=== PATIENT | male | born 1965 | race Caucasian/White ===

== ENCOUNTER 2021-03-16 12:48 | Inpatient (IN) | payer BC, SELFPAY ==
[2021-03-16] VITALS (9 sets, daily range): BP systolic 103–134; BP diastolic 52–95; PULSE 79–97; RESP 14–18; TEMP 36.4–37.8; O2SAT 92–98; BMI 32.3
--- NOTE | ~2021-03-16 | XR_ITS ---
EXAMINATION: XR elbow RT min 3V DATE: 03/16/2021 13:34 INDICATION: Right elbow pain and erythema TECHNIQUE: Anteroposterior, two oblique and lateral views of the right elbow were obtained. COMPARISON: None. FINDINGS: Alignment is normal. No fracture. Joint spaces are normal. No cortical erosions or periosteal reactio n. No right elbow joint effusion. Soft tissue swelling dorsal to the olecranon and proximal forearm. IMPRESSION: 1. Soft tissue swelling most prominent dorsal to the olecranon which could be seen with olecranon bur sitis. 2. No osseous abnormality or right elbow joint effusion. Reviewed, dictated and finalized at location A. IMPRESSION: 1. Soft tissue swelling most prominent dorsal to the olecranon which could be s een with olecranon bursitis. 2. No osseous abnormality or right elbow joint effusion.
--- NOTE | 2021-03-16 13:36 | ED.GENADULT ---
HPI - General Adult General Chief complaint: Skin/Abscess/Foreign Body Stated complaint: right elbow wound, sent from express care Time Seen by Provider: 03/16/21 13:08 Source: patient History of Present Illness HPI narrative: Patient is a 56 y/o male complaining of right elbow pain starting yesterday. He describes his pain as sharp and rates it as 10/10. Movement, cough makes his pain worse. There is no pain radiation. He had a scab over right elbow for 3 weeks. He was seen at urgent care earlier today. He was given Toradol and Rocephin. His BP reportedly dropped to 80s systolic and he was sent here for further evaluation. Related Data Home Medications Medication Instructions Recorded Confirmed lisinopril 10 mg PO DAILY 03/16/21 03/16/21 Allergies Allergy/AdvReac Type Severity Reaction Status Date / Time hydromorphone [From Dilaudid] Allergy Rash Verified 03/16/21 13:33 Review of Systems Constitutional: Constitutional: Denies chills, Denies fever(s), Denies headache(s) and Denies weakness Eyes: Eyes: Denies blurry vision ENT: Denies headache(s) and Denies neck pain Cardiovascular: Cardiovascular: Denies chest pain and Denies dyspnea Respiratory: Respiratory: Denies cough and Denies dyspnea Gastrointestinal: Gastrointestinal: Denies abdominal pain, Denies diarrhea, Denies nausea and Denies vomiting Genitourinary: Genitourinary: Denies hematuria and Denies dysuria Musculoskeletal: Musculoskeletal: Denies back pain, Denies neck pain and Reports other (right elbow pain and swelling) Integumentary/Breasts: Skin/Breast: Reports erythema (right elbow) Neurologic: Denies headache(s) and Denies weakness Exam Const: General: no acute distress and well developed Orientation/consciousness: oriented to person, oriented to place, oriented to time and patient oriented x3 HENMT: Head: normocephalic Ears: external ears normal General nose exam: Normal external nose present Eyes: General: appearance normal, both eyes and all related structures Conjunctivae: conjunctivae normal Neck: Neck: normal visual inspection and full ROM Chest: Chest palpation & inspection: normal inspection of the chest and no tenderness Resp: Effort & Inspection: normal respiratory effort Auscultation: clear to auscultation bilaterally Cardio: Rate: regular rate Rhythm: regular rhythm GI: GI Palp: No abdominal tenderness and Yes Soft to palpation Skin: General skin exam: normal color, turgor normal and erythema (right elbow) Neuro: General: oriented to person, oriented to place, oriented to time and patient oriented x3 Cognition (Neuro): normal cognition Extrem: General: normal to inspection, full ROM and no pedal edema Right upper extremity: elbow/forearm tenderness and swelling Psych: Appearance: grossly normal Mental Status: mental status grossly normal Affect: normal affect Course Consultations Consultation #1: Discussed with Dr. Snyder, who recommends starting patient on Ancef and Vanc. He will consult. Date: 03/16/21 Time: 16:49 Consultation #2: Discussed with YULI Casillas, who agrees to admit. Date: 03/16/21 Time: 17:08 Vital Signs Vital signs: Vital Signs Temperature 36.4 C 03/16/21 12:51 Pulse Rate 92 03/16/21 12:51 Respiratory Rate 18 03/16/21 12:51 Blood Pressure 107/52 L 03/16/21 12:51 Pulse Oximetry 94 03/16/21 12:51 Temperature 36.4 C 03/16/21 12:51 Pulse Rate 85 03/16/21 17:48 Respiratory Rate 15 03/16/21 17:48 Blood Pressure 133/95 H 03/16/21 17:48 Pulse Oximetry 98 03/16/21 17:48 Procedures Joint Aspiration/Injection Joint Asp./Inject. 1: Joint Aspiration Date: 03/16/21 Joint Aspiration Time: 15:04 Time Out Performed: Yes Side of body: right Joint Aspirated: elbow Ultrasound Guidance: No Skin Prep: Povidone-Iodine1% Local Anesthetic: lidocaine 1% Amount of anesthesia used (mL): 2 Needle Size Used: 18G
[2021-03-16] MEDS: SODIUM CHLORIDE 0.9% IV 1,000 ML 999 ML IV CONT (13:45)
[2021-03-16 14:00] LABS: Basophils Absolute Auto 0.1 K/mm3 (0.0-0.1); Basophils Percent Auto 0.3 % (0.2-1.2); Eosinophils Percent Auto 0.3 % (0-4.4); Hematocrit 44.1 % (42.0-52.0); Hemoglobin 15.1 g/dL (14.0-18.0); Immature Granulocyte Absolute 0.06 K/mm3 (0.00-0.031); Immature Granulocyte Percent A 0.4 % (0-0.5); Lymphocytes Absolute Auto 1.42 K/mm3 (0.9-3.2); Lymphocytes Percent Auto 9.5 % (18.3-44.2); Mean Corpuscular HGB Conc 34.2 g/dl (32-36); Mean Corpuscular Hemoglobin 30.3 pg (26-34); Mean Corpuscular Volume 88.6 fl (80-100); Mean Platelet Volume 10.2 fl (7.4-10.4); Monocytes Absolute Auto 0.8 K/mm3 (0.1-0.6); Monocytes Percent Auto 5.5 % (2.6-8.5); Neutrophils Absolute Auto 12.6 K/mm3 (1.3-6.7); Platelet Count Result 201 k/mm3 (150-375); Red Blood Count 4.98 M/mm3 (4.6-6.20); Red Cell Distribution Width 13.7 % (11.5-14.5)
[2021-03-16 14:14] LABS: Potassium 3.4 mmol/L (3.4-5.0)
[2021-03-16 14:16] LABS: Lactic Acid Reflex 1.9 mmol/L (0.7-2.1)
[2021-03-16 14:23] LABS: Anion Gap 7 mmol/L (8-16); Blood Urea Nitrogen 19 mg/dL (9-20); CRP 6.3 mg/dL (<1.0); Calcium 8.9 mg/dL (8.4-10.2); Carbon Dioxide 31 mmol/L (22-30); Chloride 98 mmol/L (98-107); Estimated CRCL calculation 88 ml/min; Estimated Glomerular Filt Rate > 60; Glucose 138 mg/dL (75-110); Sodium 136 mmol/L (137-145)
[2021-03-16 16:06] LABS: Erythrocyte Sedimentation Rate 3 mm/hr (0-20)
[2021-03-16 17:10] LABS: Source Synovial Fluid Synovial fluid
[2021-03-16 17:11] LABS: Appearance Synovial Fluid Turbid (Clear); Color Synovial Fluid Yellow (Colorless)
[2021-03-16 17:13] LABS: Lymphocytes Synovial Fluid 16 %; Monocytes Synovial Fluid 3 %; Neutrophils Synovial Fluid 81 % (0-25)
--- NOTE | 2021-03-16 17:21 | PC.NURSE ---
dinner tray ordered for pt at this time
[2021-03-16] MEDS: ceFAZolin 2 GM/D5W 50 ML 2 GM/50 ML BAG IVPB (17:23)
--- NOTE | 2021-03-16 18:26 | PC.NURSE ---
Report given to Namrata LAI on . This RN informed that the bed is not clean, will be notified when it is ready.
--- NOTE | 2021-03-16 19:30 | ADMGEN ---
This patient, Alan Rhoades, was admitted to Medical Room 349-01. Patient/family oriented to hospital policies and general routines including ID bracelet, bed and alarms, visiting hours, pain management, procedures, bathroom and other care routines, personal items, smoking policy, room service/diet, and visiting hours. Information on how to activate the Rapid Response Team has been discussed. Patient/Family are encouraged to report perceived risks to care and to ask questions if they do not understand what they are told or what they should do.
--- NOTE | 2021-03-16 21:30 | PCRCNOTE ---
PT wears CPAP at home asked if he would like one while here he said no.
[2021-03-16] MEDS: ACETAMINOPHEN 325 MG TABLET 650 MG PO (21:55)
[2021-03-16] MEDS: traMADol HCL (*CRX) 50 MG TABLET PO (21:57)
--- NOTE | 2021-03-16 22:15 | PM.IMHP ---
H&P: HPI History of Present Illness Date/Time: 03/16/21 22:00 Chief Complaint: Right elbow pain and swelling. Narrative: This is a 56-year-old male with hypertension, sleep apnea, GERD, and depression who presented to the emergency department earlier today from a local [facility] for further evaluation of right elbow pain and swelling. He noticed a small scab on the right elbow several weeks ago and is not certain as to how it occurred. More recently he developed swelling and pain in the elbow and last night it became much worse. He has also noticed that the area is warm, red, and very tender to palpation. It is made worse with movement of the joint. The joint was aspirated in the emergency department and yielded to mL of purulence fluid which was sent for analysis and culture. He has not had a fever however his temperature was 100.1? on arrival to the floor. His appetite has been okay knee denies nausea and vomiting. He denies known trauma to the elbow. No other joints are painful or swollen. No history of multidrug resistant organisms. Review of Systems Review of Systems: Narrative: Twelve systems were reviewed with pertinent positives and negatives as per HPI. He denies: Flu symptoms. No chest pain or shortness of breath. No cough. No nausea, vomiting, or diarrhea. Except as documented, all other systems were reviewed and are negative. [facility] Past Medical History Medical History (Updated 03/16/21 @ 22:11 by Sonja Fuentes PA-C) Depression History of deep venous thrombosis Right lower extremity. History of kidney stones Hypertension Obstructive sleep apnea Tobacco dependence Surgical History Surgical History (Updated 03/16/21 @ 23:41 by Sonja Fuentes PA-C) History of arthroscopy of both knees History of tonsillectomy Family History Family History Mother Cerebrovascular accident Chronic obstructive pulmonary disease Social History Social History Social History: Surrogate decision maker: Dominick Ferrara, spouse. Code status: Full code. Smoking packs per day: 1 Smoking cigarettes per day: 20.0 Years smoked: 30 Smoking pack-years: 30.00 Smoking status: Current every day smoker Alcohol intake: current Drinks per week: 0 Substance use: never Additional living arrangements comments: The patient lives with his spouse in [place]. Additional occupation/education comments: Works for the [employer]. Gender identity (if verbalized by the patient): Male Spiritual care concerns: No Meds Home Medications and Allergies Home Medications Medication Instructions Recorded Confirmed Type emtricitabine-tenofovir alafen 1 tablet PO DAILY 03/16/21 03/16/21 History [Descovy] gabapentin 300 mg PO TID 03/16/21 03/16/21 History lisinopril-hydrochlorothiazide 2 tablet PO DAILY 03/16/21 03/16/21 History omeprazole 20 mg PO DAILY 03/16/21 03/16/21 History sertraline 100 mg PO DAILY 03/16/21 03/16/21 History Allergies Allergy/AdvReac Type Severity Reaction Status Date / Time hydromorphone [From Dilaudid] Allergy Rash Verified 03/16/21 19:33 Vital Signs Vital Signs - 24 hr 03/16/21 12:51 03/16/21 13:52 03/16/21 15:11 Temperature 97.6 F Pulse Rate 92 91 90 Respiratory Rate 18 17 18 Blood Pressure 107/52 L 104/63 103/70 Pulse Oximetry 94 94 96 03/16/21 16:26 03/16/21 17:48 03/16/21 19:19 Temperature Pulse Rate 84 85 82 Respiratory Rate 15 15 14 Blood Pressure 124/81 133/95 H 134/77 Pulse Oximetry 97 98 98 03/16/21 19:45 03/16/21 21:29 Temperature 100.1 F H Pulse Rate 97 79 Respiratory Rate 18 Blood Pressure 117/79 Pulse Oximetry 95 92 Exam Narrative: Exam Narrative: General: Well-developed male lying on his left side in bed in no distress. Weight: 102.076 kilograms. BMI: 32.3. HEENT: PERRL,
[2021-03-16] MEDS: GABAPENTIN 300 MG CAPSULE PO (23:23)
[2021-03-17] MEDS: HYDROcodone/acetaminophen (*CRX) 5-325 MG TABLET 1 TAB PO ×3 (05:31→21:07)
[2021-03-17] MEDS: GABAPENTIN 300 MG CAPSULE PO ×3 (05:32→21:07)
[2021-03-17 05:34] VITALS: BP 143/80; PULSE 96; RESP 14; TEMP 36.9; O2SAT 94
[2021-03-17 06:15] LABS: Hematocrit 40.4 % (42.0-52.0); Mean Corpuscular HGB Conc 34.7 g/dl (32-36); Mean Corpuscular Hemoglobin 30.7 pg (26-34); Mean Corpuscular Volume 88.6 fl (80-100); Mean Platelet Volume 10.2 fl (7.4-10.4); Platelet Count Result 180 k/mm3 (150-375); Red Blood Count 4.56 M/mm3 (4.6-6.20); Red Cell Distribution Width 13.9 % (11.5-14.5); White Blood Count 13.6 K/mm3 (4.5-10.0)
[2021-03-17] MEDS: NICOTINE (*PBKC) 21 MG PATCH 1 PATCH TRANSDERM (06:35)
[2021-03-17 06:51] LABS: Alanine Aminotransferase 21 U/L (4-50); Albumin Level 3.6 g/dL (3.5-5.1); Alkaline Phosphatase 50 U/L (38-126); Anion Gap 4 mmol/L (8-16); Aspartate Amino Transferase 26 U/L (17-59); Bilirubin,Total 1.1 mg/dL (0.2-1.3); Blood Urea Nitrogen 20 mg/dL (9-20); CRP 16.5 mg/dL (<1.0); Calcium 8.5 mg/dL (8.4-10.2); Carbon Dioxide 30 mmol/L (22-30); Chloride 103 mmol/L (98-107); Estimated CRCL calculation 89 ml/min; Estimated Glomerular Filt Rate > 60; Glucose 116 mg/dL (75-110); Magnesium 1.8 mg/dL (1.6-2.3); Potassium 3.6 mmol/L (3.4-5.0); Sodium 137 mmol/L (137-145)
[2021-03-17] MEDS: hydroCHLOROthiazide 25 MG TABLET PO (09:03)
[2021-03-17] MEDS: PANTOPRAZOLE SOD SESQUIHYDRATE 20 MG TAB PO (09:03)
[2021-03-17] MEDS: lisinopriL 20 MG TABLET 40 MG PO (09:04)
[2021-03-17] MEDS: SERTRALINE HCL 50 MG TABLET 100 MG PO (09:04)
--- NOTE | 2021-03-17 10:31 | PHAR ---
PT'S HOME MED: (Emtricitabine-Tenofovir Alafen [Descovy] 200-25 mg tablet) VERIFIED BY PHARMACY
--- NOTE | 2021-03-17 11:30 | PM.CNOR ---
Assessment and Plan Additional Plan Patient has a right olecranon bursal infection. Again fluid was removed in the ER and this been sent off for cultures. Patient is placed on Ancef and vancomycin. Dr. Sanchez the infectious disease doctor has been consulted as well. Patient has no known drug allergies. Advised patient at this point with that we will keep him here until we have results from the cultures. At that time recommendations from Dr. Sanchez as far as length of antibiotics as well as the overall course antibiotics will be determined. Did advise patient that he continue with range of motion of the wrist and fingers. He may do gentle range of motion of the elbow if tolerable. We will continue to follow patient while he is here. At this point, given his physical exam it is unlikely that he will need surgical debridement of the elbow. However this may change in the future depending on his course of recovery <YULI Ruby - Last Filed: 03/17/21 11:36> History of Present Illness HPI Consult date: 03/17/21 <YULI Ruby - Last Filed: 03/17/21 11:36> 03/19/21 <Godfrey Snyder MD - Last Filed: 03/19/21 16:45> Chief complaint: Infection olecranon bursitis <YULI Ruby - Last Filed: 03/17/21 11:36> Narrative: 56-year-old male who is being seen for a right olecranon bursal infection. He woke up Wednesday night with severe pain and swelling in the right olecranon bursal area. He did not have any injuries or trauma. He noted he did have a scab over the elbow that has been there for about 3 weeks. He is having rather severe pain and went to an urgent care on Wednesday morning and was told that this would need to be treated at the emergency room. He was sent [facility] and was admitted. They did draw fluid off the elbow well as in the ER this is been sent off for cultures. He was placed on Ancef and vancomycin at this point. <YULI Ruby - Last Filed: 03/17/21 11:36> [facility] Past Medical History Medical History: Medical History (Updated 03/17/21 @ 15:01 by Tyesha Arciniega PA-C) Depression History of deep venous thrombosis Right lower extremity. History of kidney stones Hypertension Obstructive sleep apnea Tobacco dependence <YULI Ruby - Last Filed: 03/17/21 11:36> Surgical History Surgical History: Surgical History (Updated 03/16/21 @ 23:41 by Sonja Fuentes PA-C) History of arthroscopy of both knees History of tonsillectomy <YULI Ruby Last Filed: 03/17/21 11:36> Family History Family History: Family History Mother Cerebrovascular accident Chronic obstructive pulmonary disease <YULI Ruby Last Filed: 03/17/21 11:36> Social History Social History: Social History Social History: Surrogate decision maker: Dominick Ferrara, spouse. Code status: Full code. Smoking packs per day: 1 Smoking cigarettes per day: 20.0 Years smoked: 30 Smoking pack-years: 30.00 Smoking status: Current every day smoker Alcohol intake: current Drinks per week: 0 Substance use: never Additional living arrangements comments: The patient lives with his spouse in [place]. Additional occupation/education comments: Works for the [employer]. Gender identity (if verbalized by the patient): Male Spiritual care concerns: No <YULI Ruby - Last Filed: 03/17/21 11:36> Meds Home Medications and Allergies Home medications: Home Medications Medication Instructions Recorded Confirmed Type emtricitabine-tenofovir alafen 1 tablet PO DAILY 03/16/21 03/16/21 History [Descovy] gabapentin 300 mg PO TID 03/16/21 03/16/21 History lisinopril-hydrochlorothiazide 2 tablet PO DAILY 03/16/21 03/16/21 History omeprazole 20 mg PO DAILY 03/16/21 03/16/21 History sert
[2021-03-17 12:00] VITALS: BP 144/81; PULSE 92; RESP 16; TEMP 37.9; O2SAT 98
--- NOTE | 2021-03-17 12:25 | WPDINFPN2 ---
Progress Note: A&P Assessment and Plan (1) Septic olecranon bursitis of right elbow: Code(s): M71.121 - Other infective bursitis, right elbow Status: Acute Assessment and Plan: R elbow infectious bursitis REC Ancef (unless cultures dictate otherwise) until exam improved, then cephalexin through 03/29. Call if Qs Subjective Date/time seen: 03/17/21 12:25 Objective Data Vital Signs Vital Signs: Vital Signs - 24 hr 03/16/21 12:51 03/16/21 13:52 03/16/21 15:11 Temperature 36.4 C Pulse Rate 92 91 90 Respiratory Rate 18 17 18 Blood Pressure 107/52 L 104/63 103/70 Pulse Oximetry 94 94 96 03/16/21 16:26 03/16/21 17:48 03/16/21 19:19 Temperature Pulse Rate 84 85 82 Respiratory Rate 15 15 14 Blood Pressure 124/81 133/95 H 134/77 Pulse Oximetry 97 98 98 03/16/21 19:45 03/16/21 21:29 03/16/21 23:28 Temperature 37.8 C H 37.7 C H Pulse Rate 97 79 Respiratory Rate 18 Blood Pressure 117/79 Pulse Oximetry 95 92 03/17/21 05:34 Temperature 36.9 C Pulse Rate 96 Respiratory Rate 14 Blood Pressure 143/80 H Pulse Oximetry 94 Intake/Output Intake/Output: Intake & Output 03/14/21 03/15/21 03/16/21 03/17/21 23:59 23:59 23:59 23:59 Intake Total 1350 1240 Balance 1350 1240 Meds/Results Medications: Active Medications Generic Name Dose Route Start Last Admin Trade Name Freq PRN Reason Stop Dose Admin Acetaminophen 650 mg 03/16/21 20:56 03/16/21 21:55 Acetaminophen 325 Mg Tablet PO 650 mg Q6H PRN Administration Mild Pain (1-3) or Fever Hydrocodone Bitart/Acetaminophen 1 tab 03/16/21 23:46 03/17/21 05:31 Hydrocodone/Acetaminophen (*Crx) 5-325 Mg Tablet PO 1 tab Q6H PRN Administration Pain Rated 4-6 Gabapentin 300 mg 03/16/21 22:25 03/17/21 05:32 Gabapentin 300 Mg Capsule PO 300 mg Q8HR RAINE Administration Hydrochlorothiazide 25 mg 03/17/21 09:00 03/17/21 09:03 Hydrochlorothiazide 25 Mg Tablet PO 25 mg QAM RAINE Administration Cefazolin Sodium 1 gm in 50 mls @ 100 mls/hr 03/16/21 23:00 03/17/21 06:01 Ancef 1 Gm/D5w 50 Ml Pm IVPB Infused Q8HR RAINE Infusion Vancomycin HCl 1,500 mg in 500 mls @ 333.333 mls/hr 03/17/21 10:00 03/17/21 09:04 Vancomycin 1,500 Mg/D5w 500 Ml IVPB 333.33 mls/hr Q12H RAINE Administration Lisinopril 40 mg 03/17/21 09:00 03/17/21 09:04 Lisinopril 20 Mg Tablet PO 40 mg QAM RAINE Administration Nicotine 1 patch 03/17/21 06:10 03/17/21 06:35 Nicotine (*Pbkc) 21 Mg Patch TRANSDERM 1 patch QAM RAINE Administration Pantoprazole Sodium 20 mg 03/17/21 09:00 03/17/21 09:03 Pantoprazole Sod Sesquihydrate 20 Mg Tab PO 20 mg QAM RAINE Administration Sertraline HCl 100 mg 03/17/21 09:00 03/17/21 09:04 Sertraline Hcl 50 Mg Tablet PO 100 mg DAILY RANIE Administration Radiology Results: ITS Impressions Elbow X-Ray 03/16/21 13:37 IMPRESSION: 1. Soft tissue swelling most prominent dorsal to the olecranon which could be seen with olecranon bursitis. 2. No osseous abnormality or right elbow joint effusion. Labs Labs: Laboratory Results - last 24 hr 03/16/21 03/16/21 03/16/21 13:42 13:42 13:42 WBC 15.0 H RBC 4.98 Hgb 15.1 Hct 44.1 MCV 88.6 MCH 30.3 MCHC 34.2 RDW 13.7 Plt Count 201 MPV 10.2 Immature Gran % (Auto) 0.4 Neut % (Auto) 84.0 H Lymph % (Auto) 9.5 L [place] % (Auto) 5.5 Eos % (Auto) 0.3 Baso % (Auto) 0.3 Lymph # (Auto) 1.42 [place] # (Auto) 0.8 H Eos # (Auto) 0.0 Baso # (Auto) 0.1 Abs Immat Gran (auto) 0.06 H Absolute Neuts (auto) 12.6 H Absolute Nucleated RBC 0.0 Nucleated RBC % 0.0 ESR 3 Sodium 136 L Potassium 3.4 Chloride 98 Carbon Dioxide 31 H Anion Gap 7 L BUN 19 Creatinine 1.00 Estim Creat Clear Calc 88 Estimated GFR > 60 Glucose 138 H Lactic Acid 1.9 Calcium 8.9 Magnesium Total Bilirubin AST
[2021-03-17 14:22] VITALS: TEMP 37.2
--- NOTE | 2021-03-17 14:55 | PM.IMPN ---
Progress Note: A&P Assessment and Plan (1) Sepsis: Code(s): A41.9 - Sepsis, unspecified organism Status: Acute Assessment and Plan: Patient meets sepsis criteria with leukocytosis, fevers in the setting of septic olecranon bursitis. Continue IV antibiotics. Pending culture results. (2) Septic olecranon bursitis of right elbow: Code(s): M71.121 - Other infective bursitis, right elbow Status: Acute Assessment and Plan: Suspected septic olecranon bursitis of the right elbow with surrounding cellulitis. Empiric vancomycin and cephazolin started in the ER. Joint was aspirated in the ED and cell count, Gram stain, and cultures are pending. Dr. cadena infectious Disease evaluated the patient and recommended IV Cefazolin 1 gm Q8hrs unless cultures indicate otherwise and until exam improves. Then, once ready for discharge would recommend PO Cephalexin through 03/[address] Snyder (orthopedics) has been consulted and his input is appreciated. Continue monitoring. Pain control, antipyretics and Antiemetics PRN. (3) Hypertension: Code(s): I10 - Essential (primary) hypertension Status: Acute Assessment and Plan: Blood pressures 143/80, stable. Continue antihypertensives and monitor daily. (4) Obstructive sleep apnea: Code(s): G47.33 - Obstructive sleep apnea (adult) (pediatric) Status: Acute Assessment and Plan: CPAP will be provided for the patient to use while hospitalized. (5) Depression: Code(s): F32.9 - Major depressive disorder, single episode, unspecified Status: Acute Assessment and Plan: No acute issues. Continue sertraline. (6) Tobacco dependence: Code(s): F17.200 - Nicotine dependence, unspecified, uncomplicated Status: Acute Assessment and Plan: Smoking cessation is encouraged for 3 minutes. He has Nicotine patch in place which is helping. Would like to be discharge with nicotine patch as well. Time Spent With Patient Time with patient: 25 - 35 minutes Subjective Date/time seen: 03/17/21 14:55 Interval history: Date of service 03/17/2021: Patient is still having intermittent fevers and chills, body aches. He still has increased pain to his right elbow, redness has improved. Denies any discharge from his elbow. He denies any chest pain, shortness of breath, nausea, vomiting, abdominal pain, leg swelling, calf pain, any other joint issues, lightheadedness, dizziness or any other symptoms at this time. Review of Systems Review of Systems: All systems reviewed & are unremarkable except as noted in HPI and below Exam Narrative: Exam Narrative: General: 56-year-old man standing up on the side of the bed talking to his friend. Appears comfortable. In no acute distress. Skin: No jaundice or cyanosis. Good skin turgor. Neck: Full range of motion. Supple. Respiratory: Lungs are clear to auscultation bilaterally. No bony chest wall tenderness. Cardiovascular: The heart has a regular rate and rhythm without murmur. No carotid bruits. Right upper extremity: Erythema, edema, warmth noted to right elbow with 8 cm in diameter. Scab noted to right elbow without any signs of acute drainage. Some edema noted to the right forearm and hand. Neurovascularly distally intact. Lower extremities: No lower extremity edema. Distal pulses are easily palpated. No calf tenderness to palpation. Gastrointestinal: The abdomen is soft, nontender and nondistended with active bowel sounds. Psychiatric: Lucid and oriented. Memory intact. Neurologic: No focal deficits. Speech is clear. No facial drooping. Objective Data Vital Signs Vit
[2021-03-17 16:00] VITALS: BP 130/78; PULSE 96; RESP 16; TEMP 37.1; O2SAT 96
[2021-03-17] MEDS: ERYTHROMYCIN OPHTH OINTMENT 1 GM TUBE 1 APPLIC EACH EYE (17:06)
--- NOTE | 2021-03-17 17:19 | CONS_ITS ---
DATE OF CONSULTATION: 03/17/2021 REASON FOR CONSULTATION: Infectious bursitis, right elbow. HISTORY OF PRESENT ILLNESS: 56-year-old male with hypertension, no other chronic medical illnesses. He has had no previous surgery, major trauma nor known vascular compromise to the right upper extremity. He developed a scab over the olecranon of the right elbow about 3 weeks prior to admission. One day before admission, he developed new onset of swelling, redness, pain, diminished range of motion of the right elbow. He went to urgent care, then sent to the emergency room, then admitted. He has been given vancomycin and Ancef. Consultation requested. No fever, chills, or sweats prior to admission. No recent antibiotics for any other purpose. No prior such episodes. No arthralgias elsewhere. He has been on no immunosuppressants in the last month for any purpose. ALLERGIES: HYDROMORPHONE CAUSED RASH. HABITS: One pack per day smoker. No illicit drugs. Minimal alcohol. PRESENT MEDICATIONS: List reviewed. No immunosuppressants. He is on Descovy at home. FAMILY HISTORY: Not pertinent to his present illness. SOCIAL HISTORY: He has a same sex marriage. Works for the [employer]. Lives locally. PAST MEDICAL HISTORY: Tonsillectomy, arthroscopic knee surgery, GENE, hypertension, nephrolithiasis, previous DVT, depression. REVIEW OF SYSTEMS: Skin, musculoskeletal, constitutional, GI, respiratory otherwise negative. PHYSICAL EXAMINATION: GENERAL: Middle-aged male who appears actual age. No acute distress. VITAL SIGNS: T-max 37.8 last evening, 143/80, 96, 14, 94% room air. SKIN: Warm and dry. No erythroderma. No rashes. EENT: The conjunctivae are normal. The oropharynx, oral mucosa normal. NECK: No masses, thyromegaly, tenderness, or meningismus. LUNGS: Clear to auscultation and percussion. CARDIAC: Regular rate and rhythm without murmur or gallop. ABDOMEN: Nontender, nondistended. EXTREMITIES: Legs have no edema, clubbing, or cyanosis. On the right elbow, he has a 1 cm crusted lesion at the olecranon. He has mild edema of the elbow and just above and below. He has mildly diminished range of motion, flexion, extension, pronation and supination. There is mild warmth of the elbow area. Minimal erythema. No sinus tracts. No scars. LABORATORY DATA: His white count was 15, now 13.6, hemoglobin 14, platelets are 180. His differential yesterday normal. Chemistry panel was normal other than a glucose of 116. CRP was 6.3, now 16.5. Fluid was yellow turbid, 81% PMNs. Could not do a cell count. Blood cultures and fluid culture all in process. No Gram stains available. RADIOLOGY: Elbow x-ray, soft tissue swelling, otherwise normal. ASSESSMENT: 1. Septic bursitis of the right elbow at the olecranon, cutaneous malgorzata suspected not from hematogenous spread. There is no elbow arthritis. Noninfectious causes of his present illness are unlikely. 2. Leukocytosis and fever due to the above. 3. Tobacco abuse predisposing toward the above, I discussed tobacco cessation. RECOMMENDATIONS: 1. Ancef to continue until substantial exam and other clinical improvement. 2. Modify his antibiotics depending upon culture results. 3. Oral antibiotics through March 29 to complete 2 weeks of treatment. Thank you for asking me to see him. Please call if further questions arise. CHINTAN ROSALES M.D. FABRICATOR [employer] FABRICATOR [employer]IFICIAL BREAST D I MT: Hema
[2021-03-17 20:00] VITALS: BP 119/73; PULSE 90; RESP 18; TEMP 36.8; O2SAT 95
[2021-03-17 23:26] VITALS: O2SAT 95
[2021-03-18] VITALS: BP 132/71; PULSE 91; RESP 16; TEMP 37.6; O2SAT 95
[2021-03-18 00:17] VITALS: TEMP 37.6
[2021-03-18] MEDS: ACETAMINOPHEN 325 MG TABLET 650 MG PO (00:17)
--- NOTE | 2021-03-18 04:57 | PHAR ---
Descovy home medication identified by pharmacy. Descovy 200mg/25mg blue oral tablets.
[2021-03-18 05:15] VITALS: BP 114/67; PULSE 82; RESP 18; TEMP 36.8; O2SAT 97
[2021-03-18] MEDS: HYDROcodone/acetaminophen (*CRX) 5-325 MG TABLET 1 TAB PO ×3 (05:18→18:27)
[2021-03-18] MEDS: GABAPENTIN 300 MG CAPSULE PO ×3 (05:18→21:08)
[2021-03-18 05:41] LABS: Basophils Absolute Auto 0.1 K/mm3 (0.0-0.1); Basophils Percent Auto 0.4 % (0.2-1.2); Eosinophils Absolute Auto 0.2 K/mm3 (0-0.3); Hematocrit 42.5 % (42.0-52.0); Hemoglobin 14.5 g/dL (14.0-18.0); Immature Granulocyte Absolute 0.12 K/mm3 (0.00-0.031); Immature Granulocyte Percent A 0.8 % (0-0.5); Lymphocytes Absolute Auto 2.04 K/mm3 (0.9-3.2); Mean Corpuscular HGB Conc 34.1 g/dl (32-36); Mean Corpuscular Hemoglobin 30.3 pg (26-34); Mean Corpuscular Volume 88.7 fl (80-100); Mean Platelet Volume 10.3 fl (7.4-10.4); Monocytes Absolute Auto 1.7 K/mm3 (0.1-0.6); Monocytes Percent Auto 11.1 % (2.6-8.5); Neutrophils Absolute Auto 11.6 K/mm3 (1.3-6.7); Neutrophils Percent Auto 73.7 % (45.5-73.1); Platelet Count Result 199 k/mm3 (150-375); Red Blood Count 4.79 M/mm3 (4.6-6.20); Red Cell Distribution Width 13.6 % (11.5-14.5); White Blood Count 15.7 K/mm3 (4.5-10.0)
[2021-03-18 06:12] LABS: Anion Gap 4 mmol/L (8-16); Blood Urea Nitrogen 16 mg/dL (9-20); CRP 21.8 mg/dL (<1.0); Calcium 8.6 mg/dL (8.4-10.2); Carbon Dioxide 33 mmol/L (22-30); Chloride 103 mmol/L (98-107); Estimated CRCL calculation 99 ml/min; Estimated Glomerular Filt Rate > 60; Glucose 104 mg/dL (75-110); Sodium 140 mmol/L (137-145)
--- NOTE | 2021-03-18 06:17 | PM.PNORT ---
Progress Note: A&P Additional Plan HD 2 alert pain is improving, less redness this am, skin is still very sensitive to touch, no drainage, mild prox. forearm swelling. cx-growing staph, waiting sensitivity at this point, WBC-15.7 today, will cont. to follow . will order OT for ROM of hand and wrist and elbow <YULI Ruby - Last Filed: 03/18/21 06:21> Subjective Subjective Date/Time Seen: 03/18/21 06:17 <YULI Ruby - Last Filed: 03/18/21 06:21> Objective Data Vital Signs Vital Signs: Vital Signs - 24 hr 03/17/21 12:00 03/17/21 14:22 03/17/21 16:00 Temperature 37.9 C H 37.2 C 37.1 C Pulse Rate 92 96 Respiratory Rate 16 16 Blood Pressure 144/81 H 130/78 Pulse Oximetry 98 96 03/17/21 20:00 03/17/21 23:26 03/18/21 00:00 Temperature 36.8 C 37.6 C H Pulse Rate 90 91 Respiratory Rate 18 16 Blood Pressure 119/73 132/71 Pulse Oximetry 95 95 95 03/18/21 00:17 03/18/21 05:15 Temperature 37.6 C H 36.8 C Pulse Rate 82 Respiratory Rate 18 Blood Pressure 114/67 Pulse Oximetry 97 <YULI Ruby - Last Filed: 03/18/21 06:21> Intake/Output Intake/Output: Intake & Output 03/15/21 03/16/21 03/17/21 03/18/21 23:59 23:59 23:59 23:59 Intake Total 1350 3660 350 Output Total 900 Balance 1350 2760 350 <YULI Ruby - Last Filed: 03/18/21 06:21> Meds/Results Medications: Active Medications Generic Name Dose Route Start Last Admin Trade Name Freq PRN Reason Stop Dose Admin Acetaminophen 650 mg 03/16/21 20:56 03/18/21 00:17 Acetaminophen 325 Mg Tablet PO 650 mg Q6H PRN Administration Mild Pain (1-3) or Fever Hydrocodone Bitart/Acetaminophen 1 tab 03/16/21 23:46 03/18/21 05:18 Hydrocodone/Acetaminophen (*Crx) 5-325 Mg Tablet PO 1 tab Q6H PRN Administration Pain Rated 4-6 Erythromycin 1 applic 03/17/21 17:00 03/17/21 17:06 Erythromycin Ophth Ointment 1 Gm Tube EACH EYE 1 applic TID RAINE Administration Gabapentin 300 mg 03/16/21 22:25 03/18/21 05:18 Gabapentin 300 Mg Capsule PO 300 mg Q8HR RAINE Administration Hydrochlorothiazide 25 mg 03/17/21 09:00 03/17/21 09:03 Hydrochlorothiazide 25 Mg Tablet PO 25 mg QAM RAINE Administration Cefazolin Sodium 1 gm in 50 mls @ 100 mls/hr 03/16/21 23:00 03/18/21 05:18 Ancef 1 Gm/D5w 50 Ml Pm IVPB 100 mls/hr Q8HR RAINE Administration Lisinopril 40 mg 03/17/21 09:00 03/17/21 09:04 Lisinopril 20 Mg Tablet PO 40 mg QAM RAINE Administration Nicotine 1 patch 03/17/21 06:10 03/17/21 06:35 Nicotine (*Pbkc) 21 Mg Patch TRANSDERM 1 patch QAM RAINE Administration Pantoprazole Sodium 20 mg 03/17/21 09:00 03/17/21 09:03 Pantoprazole Sod Sesquihydrate 20 Mg Tab PO 20 mg QAM RAINE Administration Sertraline HCl 100 mg 03/17/21 09:00 03/17/21 09:04 Sertraline Hcl 50 Mg Tablet PO 100 mg DAILY RAINE Administration <YULI Ruby - Last Filed: 03/18/21 06:21> Radiology Results: ITS Impressions Elbow X-Ray 03/16/21 13:37 IMPRESSION: 1. Soft tissue swelling most prominent dorsal to the olecranon which could be seen with olecranon bursitis. 2. No osseous abnormality or right elbow joint effusion. <YULI Ruby - Last Filed: 03/18/21 06:21> Labs Labs: Laboratory Results - last 24 hr 03/17/21 03/17/21 03/18/21 05:17 05:17 05:09 WBC 13.6 H 15.7 H RBC 4.56 L 4.79 Hgb 14.0 14.5 Hct 40.4 L 42.5 MCV 88.6 88.7 MCH 30.7 30.3 MCHC 34.7 34.1 RDW 13.9 13.6 Plt Count 180 199 MPV 10.2 10.3 Immature Gran % (Auto) 0.8 H Neut % (Auto) 73.7 H Lymph % (Auto) 13.0 L [place] % (Auto) 11.1 H Eos % (Auto) 1.0 Baso % (Auto) 0.4 Lymph # (Auto) 2.04 [place] # (Auto) 1.7 H Eos # (Auto) 0.2 Baso # (Auto) 0.1 Abs Immat Gran (auto) 0.12 H Absolute Neuts (auto) 11.6 H Absolute Nucleated RBC 0.0 Nucleated RBC % 0.0 Sodium
[2021-03-18] MEDS: NICOTINE (*PBKC) 21 MG PATCH 1 PATCH TRANSDERM (09:38)
[2021-03-18] MEDS: hydroCHLOROthiazide 25 MG TABLET PO (09:38)
[2021-03-18] MEDS: lisinopriL 20 MG TABLET 40 MG PO (09:38)
[2021-03-18] MEDS: ERYTHROMYCIN OPHTH OINTMENT 1 GM TUBE 1 APPLIC EACH EYE (09:39)
[2021-03-18] MEDS: SERTRALINE HCL 50 MG TABLET 100 MG PO (09:39)
[2021-03-18] MEDS: PANTOPRAZOLE SOD SESQUIHYDRATE 20 MG TAB PO (09:39)
[2021-03-18 14:15] VITALS: BP 101/60; PULSE 89; RESP 18; TEMP 36.4; O2SAT 99
--- NOTE | 2021-03-18 15:59 | PC.NURSE ---
Observed care and reviewed documentation completed by Sabra BLAKE [phone]
--- NOTE | 2021-03-18 16:12 | PM.IMPN ---
Progress Note: A&P Assessment and Plan (1) Sepsis: Code(s): A41.9 - Sepsis, unspecified organism Status: Acute Assessment and Plan: Patient met sepsis criteria with leukocytosis and Tmax of 100.3 in the setting of septic olecranon bursitis. BCx NGTD x 2. Right elbow aspiration fluid growing staph aureus Continue IV antibiotics as below. Follow cultures (2) Septic olecranon bursitis of right elbow: Code(s): M71.121 - Other infective bursitis, right elbow Status: Acute Assessment and Plan: Suspected septic olecranon bursitis of the right elbow with surrounding cellulitis. Empiric vancomycin and cephazolin initiated in ED; vanc has been discontinued per ID rec. Ortho and ID following and appreciate recommendations. Joint aspiration growing staph aureus. Follow cultures Continue Ancef for now; tailor antibiotics to culture Transition to PO antibiotics once culture finalized and clinical improvement Continue monitoring. Pain control, antipyretics and Antiemetics PRN. (3) Hypertension: Code(s): I10 - Essential (primary) hypertension Status: Acute Assessment and Plan: Blood pressures 100s sys most recently. Continue antihypertensives monitor (4) Obstructive sleep apnea: Code(s): G47.33 - Obstructive sleep apnea (adult) (pediatric) Status: Acute Assessment and Plan: CPAP will be provided for the patient to use while hospitalized. (5) Depression: Code(s): F32.9 - Major depressive disorder, single episode, unspecified Status: Acute Assessment and Plan: No acute issues. Continue sertraline. (6) Tobacco dependence: Code(s): F17.200 - Nicotine dependence, unspecified, uncomplicated Status: Acute Assessment and Plan: He has Nicotine patch if needed Would like to be discharge with nicotine patch as well. Subjective Date/time seen: 03/18/21 16:12 Interval history: Patient is a 56-year-old male with hypertension, sleep apnea, GERD, and depression who is seen in follow up for septic olecranon bursitis of right elbow. Patient states he feels somewhat better today. He notes his swelling, warmth and redness has improved somewhat in his upper arm; still habing edema in forearm and hand but range of motion has improved. He notes feeling feverish and having sweats overnight. No other complaints. Has full sensation in right hand. Denies headaches, dizziness, lightheadedness, cp/palpitations, sob/cough, n/v/d/c, abd pain, calf pain/swelling. Review of Systems Review of Systems: All systems reviewed & are unremarkable except as noted in HPI and below Exam Narrative: Exam Narrative: General: Patient resting supine in bed in no acute distress. HEENT: Normocephalic, EOMI, oral mucosa moist. Cardiovascular: Rate and rhythm are regular. No notable murmur, rub, or gallop. Respiratory: Lungs clear to auscultation all tierney. Non-labored breathing. Abdomen: Soft, non-tender, non-distended, bowel sounds present. Extremities: Peripheral pulses intact. Right elbow is erythematous, edematous, and warm with TTP in area of concern. There is a physical scab. The area is warm and quite tender to palpation. There is some erythema that extends a few inches above and below the elbow. Significant edema in right forearm and hand. Limited ROM at level of right elbow Neuro: No focal neurological deficits. Speech is clear. Objective Data Vital Signs Vital Signs: Last Vital Signs Temp 97.5 F L 03/18/21 14:15 Pulse 89 03/18/21 14:15 Resp 18 03/18/21 14:15 BP 101/60 03/18/21 14:15 Pulse Ox 99 03/18/21 14:15 Intake/Output I
[2021-03-18 20:24] VITALS: BP 134/79; PULSE 85; RESP 18; TEMP 37; O2SAT 96
[2021-03-19 00:57] VITALS: TEMP 37.5
[2021-03-19] MEDS: HYDROcodone/acetaminophen (*CRX) 5-325 MG TABLET 1 TAB PO ×2 (00:58→06:59)
[2021-03-19 05:08] VITALS: BP 113/74; PULSE 81; RESP 18; TEMP 36.7; O2SAT 96
[2021-03-19] MEDS: GABAPENTIN 300 MG CAPSULE PO ×3 (05:09→21:03)
[2021-03-19 06:11] LABS: Basophils Absolute Auto 0.1 K/mm3 (0.0-0.1); Basophils Percent Auto 0.5 % (0.2-1.2); Eosinophils Absolute Auto 0.4 K/mm3 (0-0.3); Eosinophils Percent Auto 3.6 % (0-4.4); Hematocrit 40.7 % (42.0-52.0); Hemoglobin 13.7 g/dL (14.0-18.0); Immature Granulocyte Absolute 0.06 K/mm3 (0.00-0.031); Immature Granulocyte Percent A 0.5 % (0-0.5); Lymphocytes Absolute Auto 2.27 K/mm3 (0.9-3.2); Lymphocytes Percent Auto 20.6 % (18.3-44.2); Mean Corpuscular HGB Conc 33.7 g/dl (32-36); Mean Corpuscular Hemoglobin 29.8 pg (26-34); Mean Corpuscular Volume 88.7 fl (80-100); Mean Platelet Volume 10.2 fl (7.4-10.4); Neutrophils Absolute Auto 7.2 K/mm3 (1.3-6.7); Neutrophils Percent Auto 65.8 % (45.5-73.1); Platelet Count Result 204 k/mm3 (150-375); Red Blood Count 4.59 M/mm3 (4.6-6.20); Red Cell Distribution Width 13.5 % (11.5-14.5)
[2021-03-19 06:25] LABS: Anion Gap 3 mmol/L (8-16); Blood Urea Nitrogen 13 mg/dL (9-20); Calcium 8.5 mg/dL (8.4-10.2); Carbon Dioxide 34 mmol/L (22-30); Chloride 102 mmol/L (98-107); Estimated CRCL calculation 89 ml/min; Estimated Glomerular Filt Rate > 60; Glucose 119 mg/dL (75-110); Magnesium 1.9 mg/dL (1.6-2.3); Potassium 3.8 mmol/L (3.4-5.0); Sodium 139 mmol/L (137-145)
[2021-03-19] MEDS: lisinopriL 20 MG TABLET 40 MG PO (09:30)
[2021-03-19] MEDS: hydroCHLOROthiazide 25 MG TABLET PO (09:30)
[2021-03-19] MEDS: SERTRALINE HCL 50 MG TABLET 100 MG PO (09:31)
[2021-03-19] MEDS: NICOTINE (*PBKC) 21 MG PATCH 1 PATCH TRANSDERM (09:31)
[2021-03-19] MEDS: PANTOPRAZOLE SOD SESQUIHYDRATE 20 MG TAB PO (09:31)
--- NOTE | 2021-03-19 12:00 | PC.NURSE ---
Patient went for walk in [place] and upon making it back to his room he began to feel light headed and stated I feel like I am going to pass out. I had patient sit down and obtained a vital machine to check his vital signs. Vitals were vj at this time. I then obtained a blood sugar with a reading of 69. I gave patient some pudding to eat and a regular soda. Patient also had lunch tray delivered and after about 30 minutes I checked his sugar again with a reading in the 130's. Patient stated I feel much better. I'm not sure where that came from, but I feel normal now. Will continue to monitor for symptoms.
[2021-03-19 12:35] LABS: Glucose Point of Care 69 (65-105)
[2021-03-19 12:35] LABS: Glucose Point of Care 134 (65-105)
--- NOTE | 2021-03-19 13:50 | PM.IMPN ---
Progress Note: A&P Assessment and Plan (1) Sepsis: Code(s): A41.9 - Sepsis, unspecified organism Status: Acute Assessment and Plan: Patient met sepsis criteria with leukocytosis and Tmax of 100.3 in the setting of septic olecranon bursitis. BCx NGTD x 2. Right elbow aspiration fluid growing staph aureus sensitive to oxacillin (subsequently cefazolin) Continue IV antibiotics as below. Follow cultures (2) Septic olecranon bursitis of right elbow: Code(s): M71.121 - Other infective bursitis, right elbow Status: Acute Assessment and Plan: Suspected septic olecranon bursitis of the right elbow with surrounding cellulitis. Empiric vancomycin and cephazolin initiated in ED; vanc has been discontinued per ID rec. Ortho and ID following and appreciate recommendations. Joint aspiration aerobic culture growing staph aureus sensitive to oxacillin as above; anaerobic culture showing no anaerobes to date Follow cultures Continue Ancef for now Transition to PO antibiotics once showing significant clinical improvement Continue monitoring. Pain control, antipyretics and Antiemetics PRN. (3) Hypertension: Code(s): I10 - Essential (primary) hypertension Status: Acute Assessment and Plan: Blood pressures 100s sys most recently. Continue antihypertensives monitor (4) Obstructive sleep apnea: Code(s): G47.33 - Obstructive sleep apnea (adult) (pediatric) Status: Acute Assessment and Plan: CPAP will be provided for the patient to use while hospitalized. (5) Depression: Code(s): F32.9 - Major depressive disorder, single episode, unspecified Status: Acute Assessment and Plan: No acute issues. Continue sertraline. (6) Tobacco dependence: Code(s): F17.200 - Nicotine dependence, unspecified, uncomplicated Status: Acute Assessment and Plan: He has Nicotine patch if needed Would like to be discharged with nicotine patch as well. Subjective Date/time seen: 03/19/21 13:50 Interval history: Patient is a 56-year-old male with hypertension, sleep apnea, GERD, and depression who is seen in follow up for septic olecranon bursitis of right elbow. Patient states he feels okay today; was having increased pain this morning, but has since improved. He thinks it was exacerbated by his exercises and improved with rest. He notes his swelling and redness has improved in his upper arm and forearm, but thinks the swelling now a bit worse over the elbow. lehr tender over the elbow. Swelling in hand about the same. He notes he felt sweaty and lightheaded this morning and nurse took his blood sugar and was in 60s; symptoms improved with juice. No other complaints. Denies current f/c/s, headaches, dizziness, lightheadedness, cp/palpitations, sob/cough, n/v/d/c, abd pain, calf pain/swelling. Review of Systems Review of Systems: All systems reviewed & are unremarkable except as noted in HPI and below Exam Narrative: Exam Narrative: General: Patient resting supine in bed in no acute distress. SO in room at time of visit HEENT: Normocephalic, EOMI, oral mucosa moist. Cardiovascular: Rate and rhythm are regular. No notable murmur, rub, or gallop. Respiratory: Lungs clear to auscultation all tierney. Non-labored breathing. Abdomen: Soft, non-tender, non-distended, bowel sounds present. Extremities: Peripheral pulses intact. Right elbow is erythematous, edematous, and warm with TTP directly over elbow. There is a physical scab on this area without drainage. Improvement in erythema that extended from the elbow. Significant edema in right hand; edema in forearm impro
[2021-03-19] MEDS: HYDROcodone/acetaminophen (*CRX) 10-325 MG TABLET 1 TAB PO ×2 (14:01→20:06)
[2021-03-19 14:08] VITALS: BP 106/67; PULSE 82; RESP 16; TEMP 35.7
--- NOTE | 2021-03-19 16:45 | PM.PNORT ---
Progress Note: A&P Additional Plan Patient is hospital day 3 after admission for septic olecranon bursitis right elbow. Cultures are growing oxacillin sensitive Staph aureus. He is on Ancef which would be the appropriate antibiotic for him for now. Dr. Sanchez is following. His white count is down to 11.0 today. He has range of motion from about 30? to 120 and has quite a bit of pain at both extremes over the posterior aspect of the elbow he has significant erythema still and hypersensitivity to palpation of his olecranon bursa. He has some erythema and edema in the ulnar forearm as well and that area is not hypersensitive as it is in the 2 in area around the olecranon bursa and he has swelling there consistent with bursal fluid. He has a dry eschar in place and there is no drainage. I have recommended aspirating the olecranon bursa again. If his sensitivity and erythema do not rapidly improve formal incision and drainage and debridement would be appropriate. After ChloraPrep prep using an 18 gauge needle from a posterior proximal approach to avoid the eschar and avoid coming right down onto the bursa sac the needle was inserted Parallel to the plane of the bursa with success on the 1st pass and we were able to remove 3.5 cc of purulent fluid that had some blood to tinged and had serous aspects. continue Ancef. Will add K-pad for additional warmth. Subjective Subjective Date/Time Seen: 03/19/21 16:45 Objective Data Vital Signs Vital Signs: Vital Signs - 24 hr 03/18/21 20:24 03/19/21 00:57 03/19/21 05:08 Temperature 37.0 C 37.5 C 36.7 C Pulse Rate 85 81 Respiratory Rate 18 18 Blood Pressure 134/79 113/74 Pulse Oximetry 96 96 03/19/21 14:08 Temperature 35.7 C L Pulse Rate 82 Respiratory Rate 16 Blood Pressure 106/67 Pulse Oximetry Intake/Output Intake/Output: Intake & Output 03/16/21 03/17/21 03/18/21 03/19/21 23:59 23:59 23:59 23:59 Intake Total 1350 3660 2440 980 Output Total 900 1400 Balance 1350 2760 1040 980 Meds/Results Medications: Active Medications Generic Name Dose Route Start Last Admin Trade Name Freq PRN Reason Stop Dose Admin Acetaminophen 650 mg 03/16/21 20:56 04/20/21 00:17 Acetaminophen 325 Mg Tablet PO 650 mg Q6H PRN Administration Mild Pain (1-3) or Fever Hydrocodone Bitart/Acetaminophen 1 tab 03/16/21 23:46 03/19/21 06:59 Hydrocodone/Acetaminophen (*Crx) 5-325 Mg Tablet PO 1 tab Q6H PRN Administration Pain Rated 4-6 Hydrocodone Bitart/Acetaminophen 1 tab 03/19/21 09:58 03/19/21 14:01 Hydrocodone/Acetaminophen (*Crx) 10-325 Mg Tablet PO 1 tab Q6H PRN Administration Pain Rated 7-10 Dextrose 12.5 gm 03/19/21 13:51 Dextrose 50% 25 Gm/50 Ml Syringe IV PUSH PRN PRN Hypoglycemia Protocol Erythromycin 1 applic 03/17/21 17:00 03/19/21 12:06 Erythromycin Ophth Ointment 1 Gm Tube EACH EYE Not Given TID RAINE Gabapentin 300 mg 03/16/21 22:25 03/19/21 14:01 Gabapentin 300 Mg Capsule PO 300 mg Q8HR RAINE Administration Glucagon 1 mg 03/19/21 13:51 Glucagon For Inj 1 Mg Vial IM PRN PRN Hypoglycemia Protocol Glucose 15 gm 03/19/21 13:51 Glucose Oral Gel 15 Gm Of Glucse In 37.5 Gm Tube PO PRN PRN Hypoglycemia Protocol Hydrochlorothiazide 25 mg 03/17/21 09:00 03/19/21 09:30 Hydrochlorothiazide 25 Mg Tablet PO 25 mg QAM RAINE Administration Cefazolin Sodium 1 gm in 50 mls @ 100 mls/hr 03/16/21 23:00 03/19/21 14:02 Ancef 1 Gm/D5w 50 Ml Pm IVPB 100 mls/hr Q8HR RAINE Administration Dextrose 1,000 mls @ 100 mls/hr 03/19/21 13:51 Dextrose 5% 1,000 Ml IVPB PRN PRN Hypoglycemia Protocol Lisinopril 40 mg 03/17/21 09:00 03/19/21 09:30 Lisinopril 20 Mg Tablet PO 40 mg QAM [facility] Administration Nicotine 1 patch 03/17/21 06:10 03/19/21 09:31 Nicotine (*Pbkc) 21 Mg Patch TRANSDERM 1 patch QAM [facility] Administratio
[2021-03-19 17:30] LABS: Glucose Point of Care 117 (65-105)
[2021-03-19 20:06] VITALS: BP 127/97; PULSE 87; RESP 17; TEMP 36.3; O2SAT 97
[2021-03-19 20:22] LABS: Glucose Point of Care 114 (65-105)
[2021-03-20] MEDS: HYDROcodone/acetaminophen (*CRX) 10-325 MG TABLET 1 TAB PO ×3 (04:32→20:28)
[2021-03-20] MEDS: GABAPENTIN 300 MG CAPSULE PO ×3 (05:08→20:37)
[2021-03-20 05:27] VITALS: BP 107/64; PULSE 79; RESP 18; TEMP 36.4; O2SAT 95
[2021-03-20 05:56] LABS: Basophils Absolute Auto 0.1 K/mm3 (0.0-0.1); Basophils Percent Auto 0.6 % (0.2-1.2); Eosinophils Absolute Auto 0.4 K/mm3 (0-0.3); Eosinophils Percent Auto 4.4 % (0-4.4); Hematocrit 43.2 % (42.0-52.0); Hemoglobin 14.4 g/dL (14.0-18.0); Immature Granulocyte Absolute 0.04 K/mm3 (0.00-0.031); Immature Granulocyte Percent A 0.4 % (0-0.5); Lymphocytes Percent Auto 22.3 % (18.3-44.2); Mean Corpuscular HGB Conc 33.3 g/dl (32-36); Mean Corpuscular Hemoglobin 29.9 pg (26-34); Mean Corpuscular Volume 89.6 fl (80-100); Mean Platelet Volume 9.9 fl (7.4-10.4); Monocytes Absolute Auto 0.8 K/mm3 (0.1-0.6); Monocytes Percent Auto 8.5 % (2.6-8.5); Neutrophils Percent Auto 63.8 % (45.5-73.1); Platelet Count Result 226 k/mm3 (150-375); Red Blood Count 4.82 M/mm3 (4.6-6.20); Red Cell Distribution Width 13.6 % (11.5-14.5); White Blood Count 9.4 K/mm3 (4.5-10.0)
[2021-03-20 05:57] LABS: Hemoglobin A1C 5.5 % (<5.7)
[2021-03-20 06:06] LABS: Anion Gap 3 mmol/L (8-16); Blood Urea Nitrogen 16 mg/dL (9-20); Calcium 8.9 mg/dL (8.4-10.2); Carbon Dioxide 31 mmol/L (22-30); Chloride 104 mmol/L (98-107); Estimated CRCL calculation 99 ml/min; Estimated Glomerular Filt Rate > 60; Glucose 115 mg/dL (75-110); Magnesium 1.8 mg/dL (1.6-2.3); Potassium 4.1 mmol/L (3.4-5.0); Sodium 138 mmol/L (137-145)
[2021-03-20 07:33] LABS: Glucose Point of Care 94 (65-105)
--- NOTE | 2021-03-20 07:36 | PM.PNORT ---
Progress Note: A&P Additional Plan Right elbow looks less inflamed today. Erythema over the olecranon is much milder and the erythema and edema in the forearm is now minimal. His range of motion is improved from 10-125 degrees of flexion. He still has a bursal effusion that has recurred overnight. His white count is 9.4 which continues to improve. He states he does feel better since the aspiration of fluid last night. I would recommend we continue to observe on IV Ancef for another 24 hours to make sure that he has continued improvement. If he does not I would consider irrigation and debridement tomorrow. Subjective Subjective Date/Time Seen: 03/20/21 07:36 Objective Data Vital Signs Vital Signs: Vital Signs - 24 hr 03/19/21 14:08 03/19/21 20:06 03/20/21 05:27 Temperature 35.7 C L 36.3 C L 36.4 C Pulse Rate 82 87 79 Respiratory Rate 16 17 18 Blood Pressure 106/67 127/97 H 107/64 Pulse Oximetry 97 95 Intake/Output Intake/Output: Intake & Output 03/17/21 03/18/21 03/19/21 03/20/21 23:59 23:59 23:59 23:59 Intake Total 3660 2440 1800 400 Output Total 900 1400 Balance 2760 1040 1800 400 Meds/Results Medications: Active Medications Generic Name Dose Route Start Last Admin Trade Name Freq PRN Reason Stop Dose Admin Acetaminophen 650 mg 03/16/21 20:56 03/18/21 00:17 Acetaminophen 325 Mg Tablet PO 650 mg Q6H PRN Administration Mild Pain (1-3) or Fever Hydrocodone Bitart/Acetaminophen 1 tab 03/16/21 23:46 03/19/21 06:59 Hydrocodone/Acetaminophen (*Crx) 5-325 Mg Tablet PO 1 tab Q6H PRN Administration Pain Rated 4-6 Hydrocodone Bitart/Acetaminophen 1 tab 03/19/21 09:58 03/20/21 04:32 Hydrocodone/Acetaminophen (*Crx) 10-325 Mg Tablet PO 1 tab Q6H PRN Administration Pain Rated 7-10 Dextrose 12.5 gm 03/19/21 13:51 Dextrose 50% 25 Gm/50 Ml Syringe IV PUSH PRN PRN Hypoglycemia Protocol Erythromycin 1 applic 03/17/21 17:00 03/19/21 17:11 Erythromycin Ophth Ointment 1 Gm Tube EACH EYE Not Given TID RAINE Gabapentin 300 mg 03/16/21 22:25 03/20/21 05:08 Gabapentin 300 Mg Capsule PO 300 mg Q8HR RAINE Administration Glucagon 1 mg 03/19/21 13:51 Glucagon For Inj 1 Mg Vial IM PRN PRN Hypoglycemia Protocol Glucose 15 gm 03/19/21 13:51 Glucose Oral Gel 15 Gm Of Glucse In 37.5 Gm Tube PO PRN PRN Hypoglycemia Protocol Hydrochlorothiazide 25 mg 03/17/21 09:00 03/19/21 09:30 Hydrochlorothiazide 25 Mg Tablet PO 25 mg QAM RAINE Administration Cefazolin Sodium 1 gm in 50 mls @ 100 mls/hr 03/16/21 23:00 03/20/21 05:38 Ancef 1 Gm/D5w 50 Ml Pm IVPB Infused Q8HR RAINE Infusion Dextrose 1,000 mls @ 100 mls/hr 03/19/21 13:51 Dextrose 5% 1,000 Ml IVPB PRN PRN Hypoglycemia Protocol Lisinopril 40 mg 03/17/21 09:00 03/19/21 09:30 Lisinopril 20 Mg Tablet PO 40 mg QAM RAINE Administration Nicotine 1 patch 03/17/21 06:10 03/19/21 09:31 Nicotine (*Pbkc) 21 Mg Patch TRANSDERM 1 patch QAM RAINE Administration Pantoprazole Sodium 20 mg 03/17/21 09:00 03/19/21 09:31 Pantoprazole Sod Sesquihydrate 20 Mg Tab PO 20 mg QAM RAINE Administration Sertraline HCl 100 mg 03/17/21 09:00 03/19/21 09:31 Sertraline Hcl 50 Mg Tablet PO 100 mg DAILY RAINE Administration Radiology Results: ITS Impressions Elbow X-Ray 03/16/21 13:37 IMPRESSION: 1. Soft tissue swelling most prominent dorsal to the olecranon which could be seen with olecranon bursitis. 2. No osseous abnormality or right elbow joint effusion. Labs Labs: Laboratory Results - last 24 hr 03/19/21 03/19/21 03/19/21 11:39 12:32 17:28 WBC RBC Hgb Hct MCV MCH MCHC RDW Plt Count MPV Immature Gran % (Auto) Neut % (Auto) Lymph % (Auto) [place] % (Auto) Eos % (Auto) Baso % (Auto) Lymph # (Auto) [place] # (Auto) Eo
[2021-03-20] MEDS: NICOTINE (*PBKC) 21 MG PATCH 1 PATCH TRANSDERM (08:15)
[2021-03-20] MEDS: hydroCHLOROthiazide 25 MG TABLET PO (08:15)
[2021-03-20] MEDS: ERYTHROMYCIN OPHTH OINTMENT 1 GM TUBE 1 APPLIC EACH EYE ×2 (08:15→13:35)
[2021-03-20] MEDS: PANTOPRAZOLE SOD SESQUIHYDRATE 20 MG TAB PO (08:15)
[2021-03-20] MEDS: lisinopriL 20 MG TABLET 40 MG PO (08:15)
[2021-03-20] MEDS: SERTRALINE HCL 50 MG TABLET 100 MG PO (08:16)
--- NOTE | 2021-03-20 09:24 | PM.IMPN ---
Progress Note: A&P Assessment and Plan (1) Sepsis: Code(s): A41.9 - Sepsis, unspecified organism Status: Acute Assessment and Plan: Patient met sepsis criteria with leukocytosis and Tmax of 100.3 in the setting of septic olecranon bursitis. BCx NGTD x 2. Right elbow aspiration fluid growing staph aureus sensitive to oxacillin (cefazolin appropriate abx given sensitivity) Continue IV antibiotics as below. Follow cultures (2) Septic olecranon bursitis of right elbow: Code(s): M71.121 - Other infective bursitis, right elbow Status: Acute Assessment and Plan: Suspected septic olecranon bursitis of the right elbow with surrounding cellulitis. Empiric vancomycin and cephazolin initiated in ED; vanc has been discontinued per ID rec. Ortho and ID following and appreciate recommendations. Joint aspiration in ED; aerobic culture growing staph aureus sensitive to oxacillin as above; anaerobic culture showing no anaerobes to date. Repeat therapeutic aspiration per Dr. Snyder on 03/19 with improvement in pain/swelling Follow cultures Continue Ancef for now Transition to PO antibiotics once showing significant clinical improvement; plans for possible debridement in AM per Dr. Snyder if clinically worsens Continue monitoring. Pain control, antipyretics and antiemetics PRN. (3) Hypertension: Code(s): I10 - Essential (primary) hypertension Status: Acute Assessment and Plan: Blood pressures 100s sys most recently. Continue antihypertensives monitor (4) Obstructive sleep apnea: Code(s): G47.33 - Obstructive sleep apnea (adult) (pediatric) Status: Acute Assessment and Plan: CPAP will be provided for the patient to use while hospitalized. (5) Depression: Code(s): F32.9 - Major depressive disorder, single episode, unspecified Status: Acute Assessment and Plan: No acute issues. Continue sertraline. (6) Tobacco dependence: Code(s): F17.200 - Nicotine dependence, unspecified, uncomplicated Status: Acute Assessment and Plan: He has Nicotine patch if needed Would like to be discharged with nicotine patch as well. Subjective Date/time seen: 03/20/21 09:24 Interval history: Patient is a 56-year-old male with hypertension, sleep apnea, GERD, and depression who is seen in follow up for septic olecranon bursitis of right elbow. Patient states he feels better today. Reports Dr. Snyder visited him yesterday and aspirated more fluid from his elbow with improvement in swelling and slight improvement in pain. ROM has also improved. gig tender overlying the elbow. No fevers/sweats since yesterday. No other complaints. Denies current f/c/s, headaches, dizziness, lightheadedness, cp/palpitations, sob/cough, n/v/d/c, abd pain, calf pain/swelling. Review of Systems Review of Systems: All systems reviewed & are unremarkable except as noted in HPI and below Exam Narrative: Exam Narrative: General: Patient resting left side in bed in no acute distress HEENT: Normocephalic, EOMI, oral mucosa moist. Cardiovascular: Rate and rhythm are regular. No notable murmur, rub, or gallop. Respiratory: Lungs clear to auscultation all [place]. Non-labored breathing. Abdomen: Soft, non-tender, non-distended, bowel sounds present. Extremities: Peripheral pulses intact. Right elbow is erythematous, edematous, and warm with TTP directly over elbow. There is a physical scab on this area without drainage. Slight improvement in erythema overlying the elbow. Edema is slightly improved over the elbow but improvement in edema in forearm and hand. Improved ROM Neuro:
[2021-03-20] MEDS: EUCERIN CREAM 120 GM JAR 1 APPLIC TOPICAL (10:57)
[2021-03-20 11:55] LABS: Glucose Point of Care 91 (65-105)
[2021-03-20 14:00] VITALS: BP 105/53; PULSE 82; RESP 16; TEMP 36.2; O2SAT 96
[2021-03-20 21:19] VITALS: BP 112/63; PULSE 70; RESP 16; TEMP 36.2; O2SAT 97
[2021-03-21] VITALS (10 sets, daily range): BP systolic 90–122; BP diastolic 53–74; PULSE 73–96; RESP 8–16; TEMP 35.7–36.8; O2SAT 92–100
[2021-03-21 05:31] LABS: Hematocrit 43.8 % (42.0-52.0); Hemoglobin 14.5 g/dL (14.0-18.0); Mean Corpuscular HGB Conc 33.1 g/dl (32-36); Mean Corpuscular Hemoglobin 30.1 pg (26-34); Mean Corpuscular Volume 91.1 fl (80-100); Mean Platelet Volume 9.5 fl (7.4-10.4); Platelet Count Result 244 k/mm3 (150-375); Red Blood Count 4.81 M/mm3 (4.6-6.20); Red Cell Distribution Width 13.6 % (11.5-14.5); White Blood Count 9.2 K/mm3 (4.5-10.0)
[2021-03-21 05:56] LABS: Anion Gap 3 mmol/L (8-16); Blood Urea Nitrogen 16 mg/dL (9-20); Calcium 9.1 mg/dL (8.4-10.2); Carbon Dioxide 35 mmol/L (22-30); Chloride 101 mmol/L (98-107); Estimated CRCL calculation 99 ml/min; Estimated Glomerular Filt Rate > 60; Glucose 108 mg/dL (75-110); Magnesium 1.9 mg/dL (1.6-2.3); Sodium 139 mmol/L (137-145)
[2021-03-21] MEDS: GABAPENTIN 300 MG CAPSULE PO ×3 (06:18→21:48)
--- NOTE | 2021-03-21 07:38 | PM.PNORT ---
Progress Note: A&P Additional Plan patient reports increased pain at the olecranon bursa. There is a mild bursal effusion there is deeper red cellulitis there in and area about 2-1/2 inches in diameter. The cellulitis in the ulnar side of his forearm has resolved completely now. Edema is resolved there. Flexion to 90? causes rather severe pain in the elbow. I have recommended incision and drainage and debridement. I have discussed with him the option of doing it this at the bedside which should be more of a simple incision to allow drainage. He has rather significant anxiety and he does not feel he would be able to tolerate that. He notes that he did not tolerate the aspirations very well. I think this would be most appropriately performed in the operating room under anesthesia and we can do a more thorough debridement. I have discussed risks of surgery with him in detail. The primary risk is recurrent or persistent infection and progression of the infection to involve the olecranon bone which might necessitate further surgery. There are risks of anesthesia as well. I spoke to him about smoking cessation. I spent 15 minutes discussing the potential benefits of him stopping smoking completely at this time. I would recommend that we discontinue the nicotine patch and he is agreeable with this. If he has severe withdrawal anxiety perhaps the hospitalist would be willing to prescribe something for him in that regard such as Chantix if that would be appropriate. The surgery is scheduled for 4:00 p.m. this afternoon. Subjective Subjective Date/Time Seen: 03/21/21 07:38 Objective Data Vital Signs Vital Signs: Vital Signs - 24 hr 03/20/21 14:00 03/20/21 21:19 03/21/21 06:15 Temperature 36.2 C L 36.2 C L 36.8 C Pulse Rate 82 70 80 Respiratory Rate 16 16 16 Blood Pressure 105/53 L 112/63 122/73 Pulse Oximetry 96 97 98 Intake/Output Intake/Output: Intake & Output 03/18/21 03/19/21 03/20/21 03/21/21 23:59 23:59 23:59 23:59 Intake Total 2440 1800 1220 1150 Output Total 1400 Balance 1040 1800 1220 1150 Meds/Results Medications: Active Medications Generic Name Dose Route Start Last Admin Trade Name Freq PRN Reason Stop Dose Admin Acetaminophen 650 mg 03/16/21 20:56 03/18/21 00:17 Acetaminophen 325 Mg Tablet PO 650 mg Q6H PRN Administration Mild Pain (1-3) or Fever Hydrocodone Bitart/Acetaminophen 1 tab 03/16/21 23:46 03/19/21 06:59 Hydrocodone/Acetaminophen (*Crx) 5-325 Mg Tablet PO 1 tab Q6H PRN Administration Pain Rated 4-6 Hydrocodone Bitart/Acetaminophen 1 tab 03/19/21 09:58 03/20/21 20:28 Hydrocodone/Acetaminophen (*Crx) 10-325 Mg Tablet PO 1 tab Q6H PRN Administration Pain Rated 7-10 Dextrose 12.5 gm 03/19/21 13:51 Dextrose 50% 25 Gm/50 Ml Syringe IV PUSH PRN PRN Hypoglycemia Protocol Erythromycin 1 applic 03/17/21 17:00 03/20/21 18:33 Erythromycin Ophth Ointment 1 Gm Tube EACH EYE Not Given TID RAINE Gabapentin 300 mg 03/16/21 22:25 03/21/21 06:18 Gabapentin 300 Mg Capsule PO 300 mg Q8HR RAINE Administration Glucagon 1 mg 03/19/21 13:51 Glucagon For Inj 1 Mg Vial IM PRN PRN Hypoglycemia Protocol Glucose 15 gm 03/19/21 13:51 Glucose Oral Gel 15 Gm Of Glucse In 37.5 Gm Tube PO PRN PRN Hypoglycemia Protocol Hydrochlorothiazide 25 mg 03/17/21 09:00 03/20/21 08:15 Hydrochlorothiazide 25 Mg Tablet PO 25 mg QAM RAINE Administration Cefazolin Sodium 1 gm in 50 mls @ 100 mls/hr 03/16/21 23:00 03/21/21 06:49 Ancef 1 Gm/D5w 50 Ml Pm IVPB Infused Q8HR RAINE Infusion Dextrose 1,000 mls @ 100 mls/hr 03/19/21 13:51 Dextrose 5% 1,000 Ml IVPB PRN PRN Hypoglycemia Protocol Lisinopril 40 mg 03/17/21 09:00 03/20/21 08:15 Lisinopril 20 Mg Tablet PO 40 mg QAM RAINE Administration Multi-Ingred Cream/Lotion/Oil/Oint 1 applic 03/20/21 10:
[2021-03-21] MEDS: hydroCHLOROthiazide 25 MG TABLET PO (08:21)
[2021-03-21] MEDS: PANTOPRAZOLE SOD SESQUIHYDRATE 20 MG TAB PO (08:21)
[2021-03-21] MEDS: EUCERIN CREAM 120 GM JAR 1 APPLIC TOPICAL (08:21)
[2021-03-21] MEDS: lisinopriL 20 MG TABLET 40 MG PO (08:21)
[2021-03-21] MEDS: SERTRALINE HCL 50 MG TABLET 100 MG PO (08:22)
[2021-03-21] MEDS: HYDROcodone/acetaminophen (*CRX) 10-325 MG TABLET 1 TAB PO ×2 (08:25→20:08)
--- NOTE | 2021-03-21 13:10 | WPDHPUPDATE1 ---
History and Physical Update Update Date/Time: 03/21/21 13:10 History and Physical has been reviewed, including an updated exam of the patient. There are NO changes in the patient's condition. Risks, benefits, and alternatives have been discussed and questions answered. Patient agrees to proceed with procedure.
--- NOTE | 2021-03-21 13:50 | PM.IMPN ---
Progress Note: A&P Assessment and Plan (1) Sepsis: Code(s): A41.9 - Sepsis, unspecified organism Status: Acute Assessment and Plan: Patient met sepsis criteria with leukocytosis and Tmax of 100.3 in the setting of septic olecranon bursitis. BCx NGTD x 2. Right elbow aspiration fluid growing staph aureus sensitive to oxacillin (cefazolin appropriate abx given sensitivity). Afebrile since 03/17; leukocytosis resolved. Continue IV antibiotics as below. Follow cultures (2) Septic olecranon bursitis of right elbow: Code(s): M71.121 - Other infective bursitis, right elbow Status: Acute Assessment and Plan: Suspected septic olecranon bursitis of the right elbow with surrounding cellulitis. Empiric vancomycin and cephazolin initiated in ED; vanc has been discontinued per ID rec. Ortho following and appreciate recommendations; ID consulted and appreciated. Joint aspiration in ED; aerobic culture growing staph aureus sensitive to oxacillin as above; anaerobic culture showing no anaerobes to date. Repeat therapeutic aspiration per Dr. Snyder on 03/19 with improvement in pain/swelling. Plans for I&D per Dr. Snyder today. Follow cultures Continue Ancef for now I&D today per DR. Snyder Transition to PO antibiotics once showing significant clinical improvement Continue monitoring Pain control, antipyretics and antiemetics PRN. (3) Hypertension: Code(s): I10 - Essential (primary) hypertension Status: Acute Assessment and Plan: Blood pressures 120s sys most recently. Continue antihypertensives monitor (4) Obstructive sleep apnea: Code(s): G47.33 - Obstructive sleep apnea (adult) (pediatric) Status: Acute Assessment and Plan: CPAP will be provided for the patient to use while hospitalized. (5) Depression: Code(s): F32.9 - Major depressive disorder, single episode, unspecified Status: Acute Assessment and Plan: No acute issues. Continue sertraline. (6) Tobacco dependence: Code(s): F17.200 - Nicotine dependence, unspecified, uncomplicated Status: Acute Assessment and Plan: He has Nicotine patch if needed Would like to be discharged with nicotine patch as well. Subjective Date/time seen: 03/21/21 13:50 Interval history: Patient is a 56-year-old male with hypertension, sleep apnea, GERD, and depression who is seen in follow up for septic olecranon bursitis of right elbow. Patient states his swelling over his elbow worsened. Edema in hand and forearm improved. Redness directly over elbow is a bit worse today but improved on surrounding tissues. No other complaints. Denies current f/c/s, headaches, dizziness, lightheadedness, cp/palpitations, sob/cough, n/v/d/c, abd pain, calf pain/swelling. Review of Systems Review of Systems: All systems reviewed & are unremarkable except as noted in HPI and below Exam Narrative: Exam Narrative: General: Patient resting left side in bed in no acute distress. Nursing and in room at time of visit HEENT: Normocephalic, EOMI, oral mucosa moist. Cardiovascular: Rate and rhythm are regular. No notable murmur, rub, or gallop. Respiratory: Lungs clear to auscultation all tierney. Non-labored breathing. Abdomen: Soft, non-tender, non-distended, bowel sounds present. Extremities: Peripheral pulses intact. Right elbow is erythematous, worsened edema, and warm with TTP directly over elbow. There is a physical scab on this area without drainage. Edema has improved in forearm and hand. Same ROM as yesterday Neuro: No focal neurological deficits. Speech is clear. Objective Data Vital Signs Vi
--- NOTE | 2021-03-21 13:51 | WPDANESEPPF ---
Anes - Initial Pre Proc Eval Procedure: Operation Date: 03/21/21 16:00 Proposed Procedures p Incision and Debridement of Right Olecranon Bursa - Godfrey Snyder MD Date/Time: 03/21/21 13:51 Surgeon: Kirk Calvillo PA-C Pre Op Diagnosis: Infection olecranon bursitis Patient Data Age: 56 Gender: M Height: 1.78 m Weight: 102.076 kg Last Vital Signs Temp 36.8 C 03/21/21 06:15 Pulse 80 03/21/21 06:15 Resp 16 03/21/21 06:15 BP 122/73 03/21/21 06:15 Pulse Ox 98 03/21/21 06:15 Allergies Allergy/AdvReac Type Severity Reaction Status Date / Time hydromorphone [From Dilaudid] Allergy Rash Verified 03/16/21 19:33 Home Medications Medication Instructions Recorded Confirmed Type emtricitabine-tenofovir alafen 1 tablet PO DAILY 03/16/21 03/16/21 History [Descovy] gabapentin 300 mg PO TID 03/16/21 03/16/21 History lisinopril-hydrochlorothiazide 2 tablet PO DAILY 03/16/21 03/16/21 History omeprazole 20 mg PO DAILY 03/16/21 03/16/21 History sertraline 100 mg PO DAILY 03/16/21 03/16/21 History erythromycin 5 mg EACH EYE TID 03/17/21 03/17/21 History Laboratory Tests 03/21/21 03/21/21 05:18 05:18 WBC 9.2 K/mm3 K/mm3 (4.5-10.0) RBC 4.81 M/mm3 M/mm3 (4.6-6.20) Hgb 14.5 g/dL g/dL (14.0-18.0) Hct 43.8 % % (42.0-52.0) MCV 91.1 fl fl (80-100) MCH 30.1 pg pg (26-34) MCHC 33.1 g/dl g/dl (32-36) RDW 13.6 % % (11.5-14.5) Plt Count 244 k/mm3 k/mm3 (150-375) MPV 9.5 fl fl (7.4-10.4) Sodium 139 mmol/L mmol/L (137-145) Potassium 4.0 mmol/L mmol/L (3.4-5.0) Chloride 101 mmol/L mmol/L (98-107) Carbon Dioxide 35 mmol/L H mmol/L (22-30) Anion Gap 3 mmol/L L mmol/L (8-16) BUN 16 mg/dL mg/dL (9-20) Creatinine 0.90 mg/dL mg/dL (0.7-1.3) Estim Creat Clear Calc 99 ml/min ml/min Estimated GFR > 60 (59 - ) Glucose 108 mg/dL mg/dL (75-110) Calcium 9.1 mg/dL mg/dL (8.4-10.2) Magnesium 1.9 mg/dL mg/dL (1.6-2.3) Patient hx anesthesia problems: none Family hx anesthesia problems: none [facility] Past Medical History Medical History (Updated 03/21/21 @ 13:53 by Sahil Macdonald MD) Depression History of deep venous thrombosis Right lower extremity. History of kidney stones Hypertension Obesity Obstructive sleep apnea Tobacco dependence Surgical History Surgical History (Updated 03/16/21 @ 23:41 by Sonja Fuentes PA-C) History of arthroscopy of both knees History of tonsillectomy Family History Family History Mother Cerebrovascular accident Chronic obstructive pulmonary disease Social History Social History Social History: Surrogate decision maker: Dominick Ferrara, spouse. Code status: Full code. Smoking packs per day: 1 Smoking cigarettes per day: 20.0 Years smoked: 30 Smoking pack-years: 30.00 Smoking status: Current every day smoker Alcohol intake: current Drinks per week: 0 Substance use: never Additional living arrangements comments: The patient lives with his spouse in [place]. Additional occupation/education comments: Works for the [employer]. Gender identity (if verbalized by the patient): Male Spiritual care concerns: No Anes - Eval Final PreProcedure Day of Procedure 03/21/21 13:51 Patient weight: obese Heart: regular rate and rhythm Lungs: clear to auscultation and normal air movement Airway: Mallampati scale class II Neurological: alert and oriented Last oral intake: >/= 8 hours ASA classification: III Emergent: no Anesthetic plan: proceed Anesthesia type and monitoring: general LMA Informed Consent: The patient's anesthetic plan and its attendant risks and benefits were discussed with the patient/family/
--- NOTE | 2021-03-21 14:22 | PC.NURSE ---
Patient to OR per stretcher. Report to JOELLE Berg.
[2021-03-21] MEDS: fentaNYL CITRATE INJ (*CRX) 100 MCG/2 ML VIAL 50 MCG IV PUSH (14:45)
[2021-03-21] MEDS: LACTATED RINGERS 1,000 ML 30 ML IV CONT ×2 (15:00→17:10)
--- NOTE | 2021-03-21 15:38 | WPDHPUPDATE1 ---
History and Physical Update Update Date/Time: 03/21/21 15:38 History and Physical has been reviewed, including an updated exam of the patient. There are NO changes in the patient's condition. Risks, benefits, and alternatives have been discussed and questions answered. Patient agrees to proceed with procedure.
[2021-03-21 16:02] LABS: Glucose Point of Care 122 (65-105)
[2021-03-21] MEDS: ceFAZolin SODIUM 1 GM VIAL IRRIGATION (16:18)
[2021-03-21] MEDS: fentaNYL CITRATE INJ (*CRX) 100 MCG/2 ML VIAL 25 MCG IV PUSH ×6 (17:16→18:14)
--- NOTE | 2021-03-21 17:26 | PM.PROC ---
Procedure Note - Detailed Date of procedure: 03/21/21 Pre-op diagnosis: Infection olecranon bursitis Post-op diagnosis: same Procedure performed: Incision and debridement infected olecranon bursitis right elbow Description of procedure: Patient was brought to the operating room and general anesthesia was administered. We did give him weight based vancomycin preoperatively in addition to his normal Ancef to cover resistant organisms. A 1-1/4 inch longitudinal incision was made over the point of the olecranon entering the olecranon bursal abscess and we inserted a swab and sent this for culture. There was loose fibrinous debris and some necrotic subcutaneous fat and we carefully debrided this with needle-nose rongeur to a stable base of healthy vascular tissue. There is no exposed area of olecranon bone. We put the tourniquet up for this procedure and after this was complete we tourniquet down and thoroughly irrigated the wound with Ancef solution. We placed a quarter-inch Hutchinson drain and closed the skin with interrupted for 0 nylon with a relative gap in the region of the Shanon to allow for drainage after removal of the Hutchinson. The skin was somewhat friable but was intact without necrosis of the skin itself. A soft bulky dressing was applied and patient transferred postop recovery in stable condition. Anesthesia: GLMA Surgeon: Godfrey Snyder MD [employer] Consultant: Audra Leach Estimated blood loss (mL): 20 Drains: Yes Packing: No Pathology: other (Fluid from bursa sent for aerobic and anaerobic culture) Complications: No immediate complications Condition: stable Disposition: PACU
[2021-03-21] MEDS: KETOROLAC 15 MG/ML VIAL (*BKC) IV PUSH (17:31)
--- NOTE | 2021-03-21 18:30 | PC.NURSE ---
Pt returned from OR per stretcher. Report received from JOELLE Lynn.
[2021-03-22] VITALS: BP 104/58; PULSE 77; RESP 14; TEMP 36.7; O2SAT 94
[2021-03-22 05:42] VITALS: BP 109/52; PULSE 78; RESP 14; TEMP 36.6; O2SAT 97
[2021-03-22 05:58] LABS: Hematocrit 41.9 % (42.0-52.0); Hemoglobin 13.9 g/dL (14.0-18.0); Mean Corpuscular HGB Conc 33.2 g/dl (32-36); Mean Corpuscular Hemoglobin 30.5 pg (26-34); Mean Corpuscular Volume 92.1 fl (80-100); Mean Platelet Volume 9.8 fl (7.4-10.4); Platelet Count Result 258 k/mm3 (150-375); Red Blood Count 4.55 M/mm3 (4.6-6.20); Red Cell Distribution Width 13.3 % (11.5-14.5); White Blood Count 11.7 K/mm3 (4.5-10.0)
[2021-03-22] MEDS: GABAPENTIN 300 MG CAPSULE PO (06:56)
[2021-03-22] MEDS: HYDROcodone/acetaminophen (*CRX) 10-325 MG TABLET 1 TAB PO (06:58)
--- NOTE | 2021-03-22 07:40 | WPDANESPN ---
Anes - Prog Note Post-Op Date/Time: 03/22/21 07:40 Cardiovascular status: normal Respiratory status: normal Airway patency: baseline Mental status: baseline Vital Signs: Last Vital Signs Temp 36.6 C 03/22/21 05:42 Pulse 78 03/22/21 05:42 Resp 14 03/22/21 05:42 BP 109/52 L 03/22/21 05:42 Pulse Ox 97 03/22/21 05:42 Pain Score (VAS): 2 I/O: Intake & Output 03/21/21 03/21/21 03/22/21 15:59 23:59 07:59 Intake Total 804 817 4090 Balance 067 306 9616 Laboratory Tests 03/22/21 05:09 03/21/21 05:18 03/21/21 03/22/21 15:59 05:09 WBC 11.7 H RBC 4.55 L Hgb 13.9 L Hct 41.9 L MCV 92.1 MCH 30.5 MCHC 33.2 RDW 13.3 Plt Count 258 MPV 9.8 POC Capillary Glucose 122 H Post-procedural complaints: none Patient Feedback: Patient satisfied with anesthetic care.
[2021-03-22 08:00] VITALS: BP 112/58; PULSE 72; RESP 16; TEMP 36.7; O2SAT 98
[2021-03-22] MEDS: DOCUSATE SODIUM 100 MG CAPSULE PO (09:07)
[2021-03-22] MEDS: ENOXAPARIN 40 MG/0.4 ML SYRINGE SUB-Q (09:08)
[2021-03-22] MEDS: EUCERIN CREAM 120 GM JAR 1 APPLIC TOPICAL (09:08)
[2021-03-22] MEDS: PANTOPRAZOLE SOD SESQUIHYDRATE 20 MG TAB PO (09:09)
[2021-03-22] MEDS: SERTRALINE HCL 50 MG TABLET 100 MG PO (09:09)
--- NOTE | 2021-03-22 10:40 | PM.PNORT ---
Progress Note: A&P Additional Plan Patient is day 1. Following incision and drainage and debridement of septic olecranon bursitis right elbow. He had moderate pain last night but when he woke up this morning he noted marked improvement in his discomfort. States he does not have pain now. He can extend the elbow to about 10? with only mild discomfort and flexion is to 125. His dressing was removed. The skin edges are fine. The quarter-inch Shanon drain was removed from between the central stitches and he has some serous drainage from this area. Proximal and distal to this opening the incision is approximated. Light gauze sponges were applied to absorb drainage. Patient would like to go home today and we will discharge him on oral antibiotics, keflex. He will have an 11 day course and I will see him in the office in 11 days to assess his progress and we should be able to remove the stitches at that time and if everything looks vastly improved we will stop the antibiotics at that time. Dr. Bear recommendations are noted. I discussed case with the hospitalist and feels comfortable discharging the patient today as well. Subjective Subjective Date/Time Seen: 03/22/21 10:40 Objective Data Vital Signs Vital Signs: Vital Signs - 24 hr 03/21/21 14:00 03/21/21 17:10 03/21/21 17:25 Temperature 36.2 C L 36.2 C L Pulse Rate 81 74 74 Respiratory Rate 16 12 10 L Blood Pressure 119/74 105/68 95/63 L Pulse Oximetry 96 100 100 03/21/21 17:40 03/21/21 17:55 03/21/21 18:10 Temperature 36.3 C L Pulse Rate 73 78 81 Respiratory Rate 8 L 14 13 Blood Pressure 90/53 L 92/64 L 96/55 L Pulse Oximetry 100 93 93 03/21/21 18:30 03/21/21 18:45 03/21/21 20:36 Temperature 35.8 C L 35.7 C L 36.8 C Pulse Rate 77 96 86 Respiratory Rate 16 16 14 Blood Pressure 104/62 105/63 102/54 L Pulse Oximetry 96 92 98 03/22/21 00:00 03/22/21 05:42 03/22/21 08:00 Temperature 36.7 C 36.6 C 36.7 C Pulse Rate 77 78 72 Respiratory Rate 14 14 16 Blood Pressure 104/58 L 109/52 L 112/58 L Pulse Oximetry 94 97 98 Intake/Output Intake/Output: Intake & Output 03/19/21 03/20/21 03/21/21 03/22/21 23:59 23:59 23:59 23:59 Intake Total 1800 1220 3060 1790 Balance 1800 1220 3060 1790 Meds/Results Medications: Active Medications Generic Name Dose Route Start Last Admin Trade Name Freq PRN Reason Stop Dose Admin Acetaminophen 650 mg 03/16/21 20:56 03/18/21 00:17 Acetaminophen 325 Mg Tablet PO 650 mg Q6H PRN Administration Mild Pain (1-3) or Fever Hydrocodone Bitart/Acetaminophen 1 tab 03/16/21 23:46 03/19/21 06:59 Hydrocodone/Acetaminophen (*Crx) 5-325 Mg Tablet PO 1 tab Q6H PRN Administration Pain Rated 4-6 Hydrocodone Bitart/Acetaminophen 1 tab 03/19/21 09:58 03/22/21 06:58 Hydrocodone/Acetaminophen (*Crx) 10-325 Mg Tablet PO 1 tab Q6H PRN Administration Pain Rated 7-10 Dextrose 12.5 gm 03/19/21 13:51 Dextrose 50% 25 Gm/50 Ml Syringe IV PUSH PRN PRN Hypoglycemia Protocol Docusate Sodium 100 mg 03/22/21 09:00 03/22/21 09:07 Docusate Sodium 100 Mg Capsule PO 100 mg BID RAINE Administration Enoxaparin Sodium 40 mg 03/22/21 09:00 03/22/21 09:08 Enoxaparin 40 Mg/0.4 Ml Syringe SUB-Q 40 mg DAILY RAINE Administration Erythromycin 1 applic 03/17/21 17:00 03/22/21 09:07 Erythromycin Ophth Ointment 1 Gm Tube EACH EYE Not Given TID RAINE Gabapentin 300 mg 03/16/21 22:25 03/22/21 06:56 Gabapentin 300 Mg Capsule PO 300 mg Q8HR RAINE Administration Hydrochlorothiazide 25 mg 03/17/21 09:00 03/21/21 08:21 Hydrochlorothiazide 25 Mg Tablet PO 25 mg QAM RAINE Administration Hydromorphone HCl 0.25 mg 03/21/21 13:51 Hydromorphone Hcl Inj (*Crx) 1 Mg/Ml Syr IV PUSH Q5M PRN Pain Cefazolin Sodium 1 gm in 50 mls @ 100 mls/hr 03/16/21 23:00 03/22/21 07:26 Ancef 1 Gm/D5w 50 Ml Pm IVPB Infused Q8HR RAINE Infusion
--- NOTE | 2021-03-22 11:02 | PM.DS ---
DS: Admitting Diagnosis Admitting Diagnosis Admitting Diagnosis: Right septic olecranon bursitis DS: Discharge Diagnosis Discharge Diagnosis (1) Sepsis: Code(s): A41.9 - Sepsis, unspecified organism Status: Acute Assessment and Plan: Patient met sepsis criteria with leukocytosis and Tmax of 100.3 in the setting of septic olecranon bursitis. BCx NGTD x 2. Right elbow aspiration fluid growing staph aureus sensitive to oxacillin (cefazolin appropriate abx given sensitivity). Afebrile since 03/17; leukocytosis resolved. Continue antibiotics as below. Follow cultures (2) Septic olecranon bursitis of right elbow: Code(s): M71.121 - Other infective bursitis, right elbow Status: Acute Assessment and Plan: Septic olecranon bursitis of the right elbow with surrounding cellulitis. Empiric vancomycin and cephazolin initiated in ED; vanc has been discontinued per ID rec. Ortho following and appreciate recommendations; ID consulted and input appreciated. Joint aspiration in ED; aerobic culture growing staph aureus sensitive to oxacillin as above; anaerobic culture showing no anaerobes to date. Repeat therapeutic aspiration per Dr. Snyder on 03/19. Patient underwent I&D per Dr. Snyder in OR on 03/21. Significant improvement in symptoms today. Discussed with Dr. Snyder today and okay with discharge with f/u with him as outpatient Follow cultures Discussed with Dr. Snyder and will transition to PO Keflex per ID recommendations; agree with Dr. Snyder on continuing through 04/02 given recent I&D during stay. Will do [place] 5/325 mg Q6hr prn for 5 day supply; encouraged him to transition to Tylenol as soon as tolerated F/u on 04/[address] Snyder (3) Hypertension: Code(s): I10 - Essential (primary) hypertension Status: Acute Assessment and Plan: Blood pressures a bit soft in 110s sys most recently. BP meds held this morning as BP soft Continue antihypertensives at discharge (4) Obstructive sleep apnea: Code(s): G47.33 - Obstructive sleep apnea (adult) (pediatric) Status: Acute Assessment and Plan: CPAP will be provided for the patient to use while hospitalized. (5) Depression: Code(s): F32.9 - Major depressive disorder, single episode, unspecified Status: Acute Assessment and Plan: No acute issues. Continue sertraline. (6) Tobacco dependence: Code(s): F17.200 - Nicotine dependence, unspecified, uncomplicated Status: Acute Assessment and Plan: Smoking cessation discussed again today Would like to be discharged with nicotine patch as well. DS: Summary Hospital Course Reason for hospitalization: Right olecranon bursitis; sepsis Hospital Course: Date of arrival: 03/16/21 Date of discharge: 03/22/21 Patient is a 56-year-old male with hypertension, sleep apnea, GERD, and depression who presented to the emergency department on 03/16 from a local [facility] for further evaluation of right elbow pain and swelling. While in the ED, right elbow xray revealed soft tissue welling most prominent dorsal to the olecranon which could be seen with olecranon bursitis; no osseous abnormality or right elbow joint effusion. After physical exam, olecranon bursitis with surrounding cellulitis was suspected. This was aspirated in the ED; cultures of fluid were sent, as well as, blood cultures. He was placed on IV vanc and Ancef in the ED. Dr. Snyder (Orthopedic Surgery) was consulted from the ED for further input. Patient admitted to the hospitalist service under this setting for further management/treatment. Please see H&P for further details. After admission, Patient c
[2021-03-22] MEDS: CEPHALEXIN 500 MG CAPSULE PO (12:05)
--- NOTE | 2021-04-01 09:11 | PC.NURSE ---
No anaerobes noted in elbow culture
== END 2021-03-22 12:43 | disposition home or self-care (01) | DRG 854 ==
LOC: ANHED 13:25 → ANH3MED 17:53
PROVIDERS: Orthopaedic Surgery; Physician Assistant; Admitting Provider Internal Medicine; Emergency Provider Emergency Medicine; Visit Provider Physician Assistant
PROC: 0MD30ZZ Extraction of Right Elbow Bursa and Ligament, Open Approach (ICD-10-PCS; principal; 2021-03-21 16:00)
DX: A41.9 Sepsis, unspecified organism (principal); L03.113 Cellulitis of right upper limb; M71.121 Other infective bursitis, right elbow; B95.61 Methicillin susceptible Staphylococcus aureus infection as the cause of diseases classified elsewhere; F17.210 Nicotine dependence, cigarettes, uncomplicated; I10 Essential (primary) hypertension; G47.33 Obstructive sleep apnea (adult) (pediatric); F32.9 Major depressive disorder, single episode, unspecified; K21.9 Gastro-esophageal reflux disease without esophagitis; Z79.899 Other long term (current) drug therapy; Z86.718 Personal history of other venous thrombosis and embolism
CPT/HCPCS: 23931; 36415; 73080; 80048; 80053; 82948; 83036; 83605; 83735; 85025; 85027; 85652; 86140; 87040; 87070; 87075; 87077; 87147; 87186; 87205; 89051; 96361; 96365; 96366; 96367; 97161; 99285; A9270; G0378; J0690; J1100; J1170; J1650; J1885; J2250; J2370; J2405; J2704; J3010; J3370; J7030; J7120

== ENCOUNTER 2024-11-28 17:06 | Emergency (ER) | payer BC, SELFPAY ==
--- NOTE | 2024-11-28 17:07 | ED_ITS ---
HPI - URI/Sore Throat General Chief Complaint: Upper Respiratory Infection Stated Complaint: cold symptoms Time Seen by Provider: 11/28/24 17:07 Source: patient Mode of arrival: ambulatory Limitations: no limitations History of Present Illness HPI Narrative: Alan is a 59-year-old male patient presenting to the clinic today with complaints of runny nose, cough, chest congestion, and mild shortness of breath. He reports symptoms started 3 days ago. Had fever last night of 101. Denies any chest pain. History of asthma/COPD. He is a current smoker. Cough is nonproductive at this time. MD elicited complaint: cough, nasal congestion and other (Chest congestion, runny nose, shortness of breath) Related Data Home Medications ?Medication ?Instructions ?Recorded ?Confirmed ?Last Taken ?Type gabapentin 300 mg capsule 300 mg PO TID 03/16/21 03/16/21 03/16/21 History albuterol sulfate 90 mcg/actuation 2 puff inhalation Q4-6H PRN 11/28/24 11/28/24 Unknown History aerosol inhaler shortness of breath or wheezing hydrochlorothiazide 25 mg tablet 25 mg PO .QD 11/28/24 11/28/24 Unknown History lisinopril 40 mg tablet 40 mg PO .QD 11/28/24 11/28/24 Unknown History sertraline 50 mg tablet 50 mg PO Q24H 11/28/24 11/28/24 Unknown History Allergies Allergy/AdvReac Type Severity Reaction Status Date / Time hydromorphone (From Dilaudid) Allergy Rash Verified 11/28/24 17:10 Review of Systems Review of Systems: Pertinent positives per HPI. Patient denies any rash, headache, visual changes, dizziness, chest pain, palpitations, nausea, vomiting, diarrhea, constipation, abdominal pain, or any urinary issues. [facility] Past Medical History Medical History (Updated 11/28/24 @ 17:25 by Carlos Julio APRN) Obesity Tobacco dependence Depression History of kidney stones Obstructive sleep apnea Hypertension History of deep venous thrombosis Right lower extremity. Surgical History Surgical History (Updated 03/16/21 @ 23:41 by Sonja Fuentes PA-C) History of tonsillectomy History of arthroscopy of both knees Family History Family History Mother Cerebrovascular accident Chronic obstructive pulmonary disease Social History Social History Social History: Surrogate decision maker: Dominick Ferrara, spouse. Code status: Full code. Smoking packs per day: 1 Smoking cigarettes per day: 20.0 Years smoked: 30 Smoking pack-years: 30.00 Smoking status: Current every day smoker Alcohol intake: current Drinks per week: 0 Substance use: never Additional living arrangements comments: The patient lives with his spouse in [place]. Additional occupation/education comments: Works for the [employer]. Gender identity (if verbalized by the patient): Male Spiritual care concerns: No Comments At the time of my signature, I reviewed and agree with the nursing past medical, surgical, social, and family history. There is no relevant family history pertinent to the patient complaint. Exam Narrative: General: Well-developed, overweight, in no apparent distress Head: Normocephalic, atraumatic Eyes: Pupils equally round and reactive to light bilaterally, EOM intact, sclera and conjunctive clear, no discharge, lids normal Ears: TMs intact and congested, ear canals clear, no drainage, grossly hearing normal. Nose: Nares patent, clear nasal discharge, no inflammation, no sinus tenderness. Mouth: Oral pharynx without lesions or masses, good dentition, MMM. Postnasal drip Neck: Supple, trachea midline, no enlargement of anterior or posterior cervical nodes, no thyroid masses or goiter palpable. Cardio: Regular rate and rhythm, s1 and s2 normal, no murmur appreciated. Resp: Diminished breath sounds, no rhonchi, rales, wheezing or rubs Course Course Emergency Course: Portions of this record may have been created with voice recognition software. Level of Care: Express Care Visit Vital Signs Vital signs: Vital signs reviewed MDM - URI/Sore Throat MDM Narrative Medical decision making narrative: At the time of visit patient is resting comfortably on the exam table. Patient appears to be nontoxic. Patient declined the COVID and influenza testing today Plan: I suspect patient has bronchitis. History of asthma likely COPD. Will cover for COPD exacerbation and get prescription for azithromycin, prednisone, and Tessalon Perles. Patient has albuterol inhalers at home. Supportive measures were discussed with the patient and they voiced understanding discharge instructions and agrees to treatment plan. Return precautions reviewed Differential Diagnosis Differential diagnosis: Likely upper respiratory infection, otitis media, sinusitis, viral infection, bronchitis, influenza, pharyngitis and other (COVID) Discharge Plan Discharge Clinical Impression: Acute bronchitis Qualifiers: Bronchitis organism: unspecified organism Qualified Code(s): J20.9 - Acute bronchitis, unspecified Patient Disposition: Home, Self-Care Condition: Stable Instructions: Antibiotic Form, Acute Bronchitis (ED) Additional Instructions: Take prescription medications only as prescribed-prednisone, Tessalon Perles, and azithromycin Continue using albuterol inhaler as needed Increase fluids and stay well hydrated Tylenol/motrin for pain/fever Flonase and OTC antihistamines as directed Vicks vapor rub to open sinuses Sinus rinses for congestion Cepacol spray, cough drops, throat lozenges, warm tea with honey/lemon, gargle salt water to soothe throat BRAT diet for diarrhea Clear liquids x 24 hours then advance as tolerated for nausea/vomiting Go to the ED if you develop a worsening in your condition- high fever not controlled by Tylenol or Motrin, dehydration, weakness, lethargy, shortness of breath, or chest pain. Follow up with your PCP in 3-5 days if symptoms persist. Patient Language: Nauruan Prescriptions: New azithromycin 250 mg tablet See Rx Instructions .ROUTE .COMPLEX Qty: 6 0RF Rx Instructions: For 250 mg dose pack: take 500 mg today (day 1), then 250 mg for 4 days (days 2-5) benzonatate 200 mg capsule 200 mg PO TID 7 Days Qty: 21 0RF prednisone 20 mg tablet 40 mg PO DAILY 5 Days Qty: 10 0RF No Action hydrochlorothiazide 25 mg tablet 25 mg PO .QD sertraline 50 mg tablet 50 mg PO Q24H albuterol sulfate 90 mcg/actuation HFA aerosol inhaler 2 puff INHALATION Q4-6H PRN (Reason: shortness of breath or wheezing) lisinopril 40 mg tablet 40 mg PO .QD gabapentin 300 mg capsule 300 mg PO TID Follow-up/Referrals: [facility] [Primary Care Provider] - Time of Disposition: 17:25 Quality NIHSS Nursing Documentation ED NIHSS nursing documentation: reviewed/agree
[2024-11-28 17:19] VITALS: BP 127/68; PULSE 66; RESP 16; TEMP 36.5; O2SAT 97
== END 2024-11-28 17:28 | disposition home or self-care (01) ==
PROVIDERS: Emergency Provider Nurse Practitioner Family
DX: J20.9 Acute bronchitis, unspecified (principal); F17.210 Nicotine dependence, cigarettes, uncomplicated; I10 Essential (primary) hypertension; F32.A Depression, unspecified; E66.9 Obesity, unspecified; Z68.30 Body mass index [BMI] 30.0-30.9, adult; Z86.718 Personal history of other venous thrombosis and embolism
CPT/HCPCS: 99213; G0463